=== PATIENT | male | born 1955 | race Caucasian/White ===

== ENCOUNTER 2021-03-22 11:19 | Outpatient (REF) | payer OTHER, SELFPAY ==
--- NOTE | ~2021-03-22 | XR_ITS ---
EXAMINATION: XR HIP, RIGHT CLINICAL INFORMATION: Pain. COMPARISON: None. TECHNIQUE: 2 views of the right hip. FINDINGS: No acute fracture or dislocation. Mild joint space narrowing with tiny marginal osteophytes. No osseous erosion. Surgical sutures within the pelvis. No abnormal soft tissue calcification. XR/XR hip RT min 2V IMPRESSION: Minimal right hip arthrosis.
== END 2021-03-22 11:20 | disposition home or self-care (01) ==
LOC: HO.XRAY 11:19
PROVIDERS: PCP Internal Medicine; Visit Provider Internal Medicine
DX: M25.551 Pain in right hip (principal)
CPT/HCPCS: 73502

== ENCOUNTER 2022-12-05 09:14 | Outpatient (AMB) | payer MEDICARE, OTHER, SELFPAY ==
--- NOTE | 2022-12-05 09:17 | MHC.PC.OV ---
Vital Signs 12/05/22 09:18 Height 5 ft 6 in Weight 152 lb BMI 24.5 BP 130/66 Blood Pressure Location Lt brachial Position Sitting Pulse 78 Pulse Source Pulse Oximeter Pulse Oximetry (%) 98 Oxygen Delivery Method Room Air Intake Visit Reasons: PE Intake Note: Patient is here today for a physical. Flight Test Data Acquisition Technician Required: No Ndt Inspector: Present Accompanied by: daughter marco Allergies No Known Allergies Allergy (Verified 12/05/22 09:17) Medication List - Last Reconciled 12/05/22 by Miguel Howell MD albuterol sulfate 90 mcg/actuation (ProAir HFA) 2 puffs inhalation Q6H PRN atorvastatin 20 mg PO DAILY cyclobenzaprine 10 mg PO TID docusate sodium 100 mg PO BID naproxen (Naprosyn) 500 mg PO BID PRN polyethylene glycol 3350 (Purelax) 17 grams PO DAILY sumatriptan succinate 25 mg PO ONCE Tobacco use date assessed: 12/05/22 Fall risk assessment: No Falls in past year Last assessed Fall Risk: 12/05/22 Dental Screening Dental Screen Date: 12/05/22 Did you have a dental visit in the last 12 months?: Yes Did you have a dental problem in the last 6 months where you did not have access to dental care?: No Was dental information given to patient?: No (no teeth) HPI PE HPI Details asthma and hyperlipidemia PFSH Medical History (Updated 12/05/22 @ 09:47 by Miguel Howell MD) Hyperlipidemia Surgical History Status post colon resection Family History Father Alzheimers disease Diabetes CVD (cardiovascular disease) Mental health disorder Mother Alzheimers disease Diabetes Mental health disorder Social History (Updated 12/05/22 @ 09:23 by LUAN Mcqueen) Housing: House Alcohol intake: never Patient Tobacco Use Status: Current everyday Tobacco user Tobacco use type: Cigarette Cigarettes Per Day: 20 e-Cigarette/Vaping Use: Never Used Second Hand Smoke Exposure: No service: No Current occupational status: employed Cognitive needs: No Hearing needs: No Vision needs: Yes (glasses) Questionnaire Thrive Questionnaire Date Thrive assessed: 05/26/22 MARIANA-7 AMB Questionnaire MARIANA-7 Date MARIANA - 7 assessed: 05/26/22 Source: Developed by Drs. Lisandro Herring, Kacie Bansal, Tyrell Daniel and colleagues, with an educational pipe from [employer]. Review of Systems Const Denies chills, Denies fatigue, Denies headache(s) and Denies weight loss Eyes Denies change in vision, Denies diplopia and Denies eye pain ENT Denies vertigo, Denies dizziness, Denies headache(s) and Denies nasal discharge Card Denies chest pain, Denies rapid heart rate and Denies dyspnea on exertion Resp Denies chest congestion, Denies cough, Denies pain with cough and Denies dyspnea on exertion GI Denies abdominal pain, Denies hematochezia and Denies change in bowel habits Musc Denies myalgias, Denies arthralgias and Denies joint swelling Skin/Breast Denies lesions and Denies unusual bruising Neuro Denies vertigo, Denies dizziness, Denies headache(s) and Denies focal weakness Endo Denies fatigue Physical exam (Primary Care) Vital Signs: Last Vital Signs Pulse 78 12/05/22 09:18 BP 130/66 12/05/22 09:18 Pulse Ox 98 12/05/22 09:18 Oxygen Delivery Method Room Air 12/05/22 09:18 BMI result Body Mass Index 24.5 Tobacco/Smoking Status: Tobacco use Status Tobacco use date assessed 12/05/22 12/05/22 09:25 Patient Tobacco Use Status Current everyday Tobacco 12/05/22 09:25 Tobacco use type Cigarette 12/05/22 09:25 e-Cigarette/Vaping Use Never Used 12/05/22 09:25 Are you ready to quit: No Number of minutes spent counselin CPT code: 09780 - 4-10 Minutes Thrive Assessment: Date of Thrive Assessment Date Thrive assessed 05/26/22 12/05/22 09:25 Const General: cooperative, healthy appearing and no acute distress Orientation/consciousness: oriented to person, oriented to place and oriented to time [facility] Head: Yes normal to inspection, Yes normocephalic and Yes atraumatic Mouth: Normal oral and palatal mucosa present and tongue normal Throat: Yes posterior oropharynx normal and Yes uvula midline Eyes General: appearance normal, both eyes and all related structures Neck Neck: Yes normal visual inspection, Yes full ROM and Yes no lymphadenopathy Thyroid: Thyroid normal Carotids: normal carotid upstroke Chest Chest palpation & inspection: normal inspection of the chest Resp Effort & Inspection: normal respiratory effort and able to speak in complete sentences Auscultation: clear to auscultation bilaterally Cardio Jugular venous distension: no JVD Palpation: normal PMI Rate: regular rate Rhythm: regular rhythm Heart sounds: S1 normal heart sound present and S2 normal heart sound present GI Inspection: Yes normal to inspection Palpation (GI): Soft to palpation and No hepatosplenomegaly present Auscultation: normal bowel sounds General: Yes no CVA tenderness Back/Spine/Pelvis Back: no CVA tenderness Skin General skin exam: no rashes or lesions noted Neuro General: oriented to person, oriented to place and oriented to time Extrem General: Yes normal to inspection and Yes full ROM Assessment and Plan Assessment & Plan (1) Physical exam: Code(s): Z00.00 - Encounter for general adult medical examination without abnormal findings Plan: do labs (2) Asthma: Code(s): J45.909 - Unspecified asthma, uncomplicated Plan: stop smoking (3) Hyperlipidemia: Code(s): E78.5 - Hyperlipidemia, unspecified Plan: do labs (4) Colon polyps: Code(s): K63.5 - Polyp of colon Plan: ref gi Orders: Orders Comprehensive [place]. Panel Fast Today N28.9 - Disorder of kidney and ureter, unspecified Lipid Panel Today E78.5 - Hyperlipidemia, unspecified Prostate Specific Antigen Scr Today Z00.00 - Encounter for general adult medical examination without abnormal findings Thyroid Stimulating Hormone Today E03.9 - Hypothyroidism, unspecified Complete Blood Count Auto Diff Today D64.9 - Anemia, unspecified Referrals Gastroenterology Referral K63.5 - Polyp of colon Medications: New nicotine 1 patch transdermal DAILY 28 ea 3RF Refilled cyclobenzaprine 10 mg PO TID 90 tabs 8RF Coding Level of Care Code New Pt Prev Care >65yr (93976) Diagnoses Physical exam Z00.00 Asthma J45.909 Hyperlipidemia E78.5 Colon polyps K63.5 Additional Codes Vital Signs *Quality* - CPT code: 22557 - 4-10 Minutes ([id number])
[2022-12-05 09:18] VITALS: BP 130/66; PULSE 78; O2SAT 98; BMI 24.5
== END 2022-12-05 09:44 | disposition home or self-care (01) ==
PROVIDERS: Visit Provider Internal Medicine
DX: Z00.00 Encounter for general adult medical examination without abnormal findings (principal); J45.909 Unspecified asthma, uncomplicated; E78.5 Hyperlipidemia, unspecified; K63.5 Polyp of colon
CPT/HCPCS: 99387

== ENCOUNTER 2023-08-16 08:26 | Day surgery (SDC) | payer MEDICARE, OTHER, SELFPAY ==
[2023-08-14 11:15] VITALS: BMI 24.7
[2023-08-16 09:37] VITALS: BMI 23.8
[2023-08-16 10:07] VITALS: BP 153/110; PULSE 92; RESP 16; TEMP 36.3
[2023-08-16 10:08] VITALS: BP 153/110; PULSE 92; RESP 16; TEMP 36.3; O2SAT 98
[2023-08-16] MEDS: Lactated Ringers 1,000 ML 80 ML IVCONT (10:11)
[2023-08-16 10:13] VITALS: BP 148/86
--- NOTE | 2023-08-16 10:21 | HO.ANESPROP2 ---
[facility] Active Problems Active Problems: All Active Problems (Updated 08/14/23 @ 11:13 by Jennie Feng RN) Colon polyps (Acute) Colitis (Acute) Migraine headache (Acute) Asthma (Acute) Hypertension (Acute) Physical exam (Acute) Hip pain (Acute) Hyperlipidemia (Acute) Past Medical History Medical History Rectal cancer Hyperlipidemia Family History Family History Father Alzheimers disease Diabetes CVD (cardiovascular disease) Mental health disorder Mother Alzheimers disease Diabetes Mental health disorder Family history of problems with anesthesia: No Surgical History Surgical History Hx of appendectomy Status post colon resection History of Problems with Anesthesia: No Social History Social History (Updated 12/05/22 @ 09:23 by LUAN Mcqueen) Housing: House Alcohol intake: never Patient Tobacco Use Status: Current everyday Tobacco user Tobacco use type: Cigarette Cigarettes Per Day: 10 e-Cigarette/Vaping Use: Never Used Second Hand Smoke Exposure: No Use of substances other than those prescribed or required for medical reasons: No Are you DNR?: No Advance Directives: No Advance Directives Information Provided: Yes service: No Current occupational status: employed Cognitive needs: No Hearing needs: No Vision needs: Yes (glasses) Meds Allergies Allergy/AdvReac Type Severity Reaction Status Date / Time No Known Allergies Allergy Verified 12/05/22 09:17 Active Medications: Current Medications Lactated Ringer's (Lr) 1,000 mls @ 80 mls/hr IVCONT .[id number] [facility] Last Admin: 08/16/23 10:11 Dose: 80 mls/hr Sodium Biphosphate/Sodium Phosphate (Sodium Phosphate,[place]-Dibasic 133 Ml Enema) 133 ml CA ONCE PRN PRN Reason: Poor Colonoscopy Prep Results Home Medications Medication Instructions Recorded Confirmed Last Taken Type atorvastatin 20 mg tablet 20 mg PO DAILY 05/08/20 12/05/22 Unknown History docusate sodium 100 mg capsule 100 mg PO BID 05/26/22 12/05/22 Unknown History polyethylene glycol 3350 17 gram 17 g PO DAILY 05/26/22 12/05/22 Unknown History oral powder packet (Purelax) cyclobenzaprine 10 mg tablet 10 mg PO TID PRN Muscle Spasm 08/14/23 08/14/23 Unknown History Exam Height,Weight and Vital Signs: Height 5 ft 7 in Weight 68.946 kg Last Vital Signs Temp 97.3 F 08/16/23 10:08 Pulse 92 08/16/23 10:08 Resp 16 08/16/23 10:08 BP 148/86 H 08/16/23 10:13 Pulse Ox 98 08/16/23 10:08 O2 Del Method Room Air 08/16/23 10:08 Airway Mallampati Class: II TM Dist: >3cm Loose/Missing/Broken Teeth: Yes (multiple missing) Heart: rrr Lungs: cta b/l Assessment and Plan Assessment Anesthesia Assessment: Anesthesia Plan Discussed, Smoking Cess. Discussed and Chart Reviewed Final Anesthetic Review Family History of Problems with Anesthesia: No History of Problems with Anesthesia: No NPO: Yes ASA Class: II Final Preanesthetic Review: No Changes in Pt Med Stat, Meds/Allgs Chart Reviewed, Consent Obtained/Reviewed and Anes Risks/Benef Reviewed Patient Risk: Intermediate Procedure Risk: Intermediate Anesthetic Plan Anesthetic Plan: MAC: Disposition: Standard PACU
[2023-08-16 12:25] VITALS: BP 157/98; PULSE 82; RESP 18; TEMP 36.2; O2SAT 99
--- NOTE | 2023-08-16 12:30 | PM.OP ---
Brief Operative Note Date of Service: 08/16/23 Pre-op diagnosis: Screening, Hx of rectal cancer Post-op diagnosis: other (Same, incomplete colonoscopy due to poor prep) Procedure: Colonoscopy to the descending colon Surgeon: Lisandro Giron MD Anesthesia: MAC Was an Coding Quality Analyst used for this Procedure?: No Estimated blood loss (mL): 0 Pathology: none sent Condition: stable Disposition: PACU
[2023-08-16 12:40] VITALS: BP 149/89; PULSE 79; RESP 16; O2SAT 98
[2023-08-16 12:54] VITALS: BP 148/86; PULSE 78; RESP 16; TEMP 36.2; O2SAT 98
--- NOTE | 2023-08-16 13:07 | OP_ITS ---
DATE OF SERVICE: 08/16/2023 SURGEON: Lisandro Giron MD INDICATIONS: The patient presents for evaluation of personal history of rectal cancer and need for colorectal cancer screening. Full consent obtained from him for this, including risks of bleeding and perforation. PREOPERATIVE DIAGNOSIS: POSTOPERATIVE DIAGNOSIS: PROCEDURE PERFORMED: Colonoscopy to the descending colon. ESTIMATED BLOOD LOSS: COMPLICATIONS: ANESTHESIA: Monitored anesthesia care. ASSISTANTS: SPECIMENS: PREOPERATIVE DIAGNOSES: Personal history of rectal cancer and colorectal cancer screening. POSTOPERATIVE DIAGNOSES: Personal history of rectal cancer and colorectal cancer screening, incomplete colonoscopy due to poor prep, colon polyp. DESCRIPTION OF PROCEDURE: The patient was placed in the left lateral decubitus position. The digital rectal exam revealed no abnormalities. The Olympus video pediatric colonoscope was entered into the rectum and advanced to the descending colon. However, I could not advance further due to retained solid and liquid stool both proximal and distal to this. At that point, I opted to stop trying to advance the scope as visualization was obviously inadequate. I did visualize a single, approximately 10 mm polyp in the sigmoid colon, but did not bother removing it today as he will need a repeat exam with a better preparation. I did visualize what appeared to be a very low anastomosis 2 to 3 cm above the dentate line. This appeared patent and without any sign of stricture, ulceration, nor mass. The scope was withdrawn from the patient. He tolerated the procedure well and was returned to recovery area in stable condition. IMPRESSION: 1. Incomplete colonoscopy due to poor prep. 2. Colon polyp. 3. Patent anastomosis. PLAN: The patient will be discharged today but will return for a repeat colonoscopy with a 2-day preparation. My office will be in touch with him in that regard. He has been given written instructions in this regard and I have spoken with his daughter, Danisha, about this as well. MD CJ Atkinson/REBEKA / [id number] MTDD
== END 2023-08-16 14:42 | disposition home or self-care (01) ==
PROVIDERS: Visit Provider Internal Medicine
PROC: 0DJD8ZZ Inspection of Lower Intestinal Tract, Via Natural or Artificial Opening Endoscopic (ICD-10-PCS; CPT 45378; principal; 2023-08-16 12:30)
DX: Z12.11 Encounter for screening for malignant neoplasm of colon (principal); K63.5 Polyp of colon; Z85.048 Personal history of other malignant neoplasm of rectum, rectosigmoid junction, and anus; Z92.21 Personal history of antineoplastic chemotherapy; Z92.3 Personal history of irradiation; Z98.0 Intestinal bypass and anastomosis status; F17.210 Nicotine dependence, cigarettes, uncomplicated; Z79.899 Other long term (current) drug therapy
CPT/HCPCS: 45330; J2704

== ENCOUNTER 2023-11-22 08:46 | Day surgery (SDC) | payer MEDICARE, SELFPAY ==
[2023-11-20 14:01] VITALS: BMI 24.7
[2023-11-22 08:53] VITALS: BMI 23.2
[2023-11-22 09:05] VITALS: BP 163/84; PULSE 76; RESP 18; TEMP 36.2; O2SAT 99
[2023-11-22] MEDS: Lactated Ringers 1,000 ML 100 ML IVCONT (09:15)
--- NOTE | 2023-11-22 09:28 | HO.ANESPROP2 ---
HPI - Anesthesia Eval Consult details Narrative: 68 yo M presenting for colonoscopy [facility] Active Problems Active Problems: All Active Problems Colon polyps (Acute) Colitis (Acute) Migraine headache (Acute) Asthma (Acute) Hypertension (Acute) Physical exam (Acute) Hip pain (Acute) Hyperlipidemia (Acute) Past Medical History Medical History Asthma Rectal cancer Hyperlipidemia Family History Family History Father Alzheimers disease Diabetes CVD (cardiovascular disease) Mental health disorder Mother Alzheimers disease Diabetes Mental health disorder Family history of problems with anesthesia: No Surgical History Surgical History H/O colonoscopy Hx of appendectomy Status post colon resection History of Problems with Anesthesia: No Social History Social History (Updated 12/05/22 @ 09:23 by LUAN Mcqueen) Housing: House Alcohol intake: never Patient Tobacco Use Status: Current everyday Tobacco user Tobacco use type: Cigarette Cigarettes Per Day: 20 e-Cigarette/Vaping Use: Never Used Second Hand Smoke Exposure: No Use of substances other than those prescribed or required for medical reasons: No Are you DNR?: No Advance Directives: No Advance Directives Information Provided: Yes service: No Current occupational status: employed Cognitive needs: No Hearing needs: No Vision needs: Yes (glasses) Meds Allergies Allergy/AdvReac Type Severity Reaction Status Date / Time No Known Allergies Allergy Verified 12/05/22 09:17 Active Medications: Current Medications Lactated Ringer's (Lr) 1,000 mls @ 100 mls/hr IVCONT .Q10H [facility] Last Admin: 11/22/23 09:15 Dose: 100 mls/hr Sodium Biphosphate/Sodium Phosphate (Sodium Phosphate,[place]-Dibasic 133 Ml Enema) 133 ml CO ONCE PRN PRN Reason: Poor Colonoscopy Prep Results Home Medications ?Medication ?Instructions ?Recorded ?Confirmed ?Last Taken ?Type polyethylene glycol 3350 17 gram 17 g PO DAILY 05/26/22 12/05/22 Unknown History oral powder packet (Purelax) cyclobenzaprine 10 mg tablet 10 mg PO TID PRN Muscle Spasm 08/14/23 08/14/23 Unknown History Exam Exam Date and Time: November 22, 2023924 Height,Weight and Vital Signs: Height 5 ft 7 in Weight 67.132 kg Last Vital Signs Temp 97.1 F 11/22/23 09:05 Pulse 76 11/22/23 09:05 Resp 18 11/22/23 09:05 BP 163/84 H 11/22/23 09:05 Pulse Ox 99 11/22/23 09:05 O2 Del Method Room Air 11/22/23 09:05 Airway Mallampati Class: I TM Dist: >3cm Neck ROM: Full Loose/Missing/Broken Teeth: Yes (edentulous) Heart: S1S2 Lungs: CTAB Assessment and Plan Assessment Anesthesia Assessment: Anesthesia Plan Discussed and Chart Reviewed Final Anesthetic Review Family History of Problems with Anesthesia: No History of Problems with Anesthesia: No NPO: Yes ASA Class: II Final Preanesthetic Review: No Changes in Pt Med Stat, Meds/Allgs Chart Reviewed, Consent Obtained/Reviewed and Anes Risks/Benef Reviewed Patient Risk: Low Procedure Risk: Low Anesthetic Plan Anesthetic Plan: MAC: and Agree w/ Assess. and Plan Disposition: Standard PACU
[2023-11-22 10:47] VITALS: BP 131/79; PULSE 68; RESP 18; TEMP 36.6; O2SAT 98
--- NOTE | 2023-11-22 10:50 | PM.OP ---
Brief Operative Note Date of Service: 11/22/23 Pre-op diagnosis: Screening Post-op diagnosis: other (Colon polyps) Procedure: Colonoscopy to the cecum with bx/removal of polyp, cold snare polypectomy, and hot snare polypectomy Surgeon: Lisandro Giron MD Anesthesia: MAC Was an Estate Planning Paralegal used for this Procedure?: No Estimated blood loss (mL): 2.0 Pathology: other (A. Polyp at 50cm B. Ascending colon polyp C. Polyp at 40cm D. Polyp at 20cm E. Distal rectal polyp) Condition: stable Disposition: PACU
[2023-11-22 10:52] VITALS: BP 132/80; PULSE 65; RESP 18; O2SAT 98
[2023-11-22 10:57] VITALS: BP 143/79; PULSE 62; RESP 18; O2SAT 98
[2023-11-22 11:02] VITALS: BP 148/81; PULSE 62; RESP 18; TEMP 36.8; O2SAT 98
[2023-11-22 11:12] VITALS: BP 129/75; PULSE 62; RESP 18; TEMP 36.4; O2SAT 98
--- NOTE | 2023-11-22 11:33 | OP_ITS ---
DATE OF SERVICE: 11/22/2023 SURGEON: Lisandro Giron MD INDICATIONS: The patient presents for evaluation of personal history of rectal cancer and colorectal cancer screening. Full consent has been obtained from him for this, including risks of bleeding and perforation. PREOPERATIVE DIAGNOSIS: POSTOPERATIVE DIAGNOSIS: PROCEDURE PERFORMED: Colonoscopy to the cecum with hot snare polypectomy, cold snare polypectomy, and biopsy removal of polyp. ESTIMATED BLOOD LOSS: COMPLICATIONS: ANESTHESIA: Monitored anesthesia care. ASSISTANTS: SPECIMENS: PREOPERATIVE DIAGNOSES: Colorectal cancer screening and personal history of rectal cancer. POSTOPERATIVE DIAGNOSES: Colorectal cancer screening, personal history of rectal cancer, colon polyps, diverticulosis, and internal hemorrhoids. DESCRIPTION OF PROCEDURE: The patient was placed in the left lateral decubitus position. The digital rectal exam revealed no abnormalities. The Olympus video pediatric colonoscope was then entered into the rectum and advanced easily to the cecum. Once in the cecum, I did identify normal-appearing cecal pouch with appendiceal orifice and a normal-appearing ileocecal valve. The entire cecum and ileocecal valve appeared normal. There was transillumination of light deep in the right lower quadrant. The scope was then slowly withdrawn assessing all mucosal surfaces carefully. Preparation was excellent after his 2-day prep. In the ascending colon, was an approximately 3 or 4 mm polyp, which was removed with a cold biopsy forceps completely. At 50 cm, was an approximately 5 mm polyp, which was removed by cold snare polypectomy and recovered by suction. The polypectomy site appeared clean, without any sign of residual polyp nor any significant bleeding. At 40 cm, was an approximately 5 mm polyp, which was removed by cold snare polypectomy and recovered by suction. The polypectomy site appeared clean, without any sign of residual polyp nor significant bleeding. At 20 cm, was an approximately 10 mm polyp, which was removed by a hot snare polypectomy and recovered by suction. The polypectomy site appeared clean, without any sign of residual polyp nor bleeding. In the distal rectum, beneath the anastomosis, was an approximately 8 mm flat, but raised polyp, which was removed by hot snare polypectomy and recovered by suction. The polypectomy site appeared clean, without any sign of residual polyp nor bleeding. I did not visualize any other polyps, colitis, or angiodysplasias. There was a mild amount of sigmoid diverticulosis. The anastomosis appeared normal in the distal most rectum. I was unable to retroflex due to the previous surgery and radiation treatments. I did visualize some internal hemorrhoids. The scope was withdrawn from the patient. He tolerated the procedure well and was returned to the recovery area in stable condition. IMPRESSION: 1. Colon polyps. 2. Diverticulosis. 3. Normal anastomosis. 4. Internal hemorrhoids. PLAN: The results of the pathology will be checked. I would recommend a repeat colonoscopy in 3 years for further screening and surveillance. He will, otherwise, see me on a p.r.n. basis. He was advised not to use any aspirin and NSAIDs for 1 week. MD CJ Atkinson/REBEKA / [id number]
== END 2023-11-22 11:30 | disposition home or self-care (01) ==
PROVIDERS: PCP Internal Medicine; Visit Provider Internal Medicine
PROC: 0DJD8ZZ Inspection of Lower Intestinal Tract, Via Natural or Artificial Opening Endoscopic (ICD-10-PCS; CPT 45378; principal; 2023-11-22 09:30)
DX: Z12.11 Encounter for screening for malignant neoplasm of colon (principal); Z85.048 Personal history of other malignant neoplasm of rectum, rectosigmoid junction, and anus; D12.5 Benign neoplasm of sigmoid colon; D12.2 Benign neoplasm of ascending colon; D12.8 Benign neoplasm of rectum; K57.30 Diverticulosis of large intestine without perforation or abscess without bleeding; K64.8 Other hemorrhoids; G62.9 Polyneuropathy, unspecified; Z98.0 Intestinal bypass and anastomosis status; Z92.21 Personal history of antineoplastic chemotherapy; Z92.3 Personal history of irradiation; Z79.899 Other long term (current) drug therapy; F17.210 Nicotine dependence, cigarettes, uncomplicated
CPT/HCPCS: 45385; 45380; 88305; J2704

== ENCOUNTER 2023-12-13 09:50 | Outpatient (AMB) | payer MEDICARE, SELFPAY ==
[2023-12-13 09:56] VITALS: BP 130/74; RESP 65; O2SAT 98; BMI 23.3
--- NOTE | 2023-12-13 09:56 | A.OFFPC_ITS ---
Vital Signs 12/13/23 09:56 Height 5 ft 7 in Weight 149 lb BMI 23.3 BP 130/74 Blood Pressure Location Lt brachial Position Sitting Respiration 65 H Pulse Source Pulse Oximeter Pulse Oximetry (%) 98 Oxygen Delivery Method Room Air Intake Visit Reasons: Annual Exam Supervisor [employer] Required: No Food And Nutrition Services Supervisor: Not Required per policy Accompanied by: Self / Same As Patient Allergies No Known Allergies Allergy (Verified 12/13/23 09:56) Medication List - Last Reconciled 12/13/23 by Miguel Howell MD cyclobenzaprine 10 mg PO TID PRN polyethylene glycol 3350 (Purelax) 17 grams PO DAILY Tobacco use date assessed: 12/13/23 Fall risk assessment: No Falls in past year Last assessed Fall Risk: 12/13/23 Dental Screening Dental Screen Date: 12/13/23 Did you have a dental visit in the last 12 months?: No Did you have a dental problem in the last 6 months where you did not have access to dental care?: No Was dental information given to patient?: Patient has dentist HPI Annual Exam HPI Details healthy [facility] Medical History (Updated 12/13/23 @ 10:48 by Miguel Howell MD) Hypertension Asthma Rectal cancer Hyperlipidemia Surgical History H/O colonoscopy Hx of appendectomy Status post colon resection Family History Father Alzheimers disease Diabetes CVD (cardiovascular disease) Mental health disorder Mother Alzheimers disease Diabetes Mental health disorder Social History (Updated 12/05/22 @ 09:23 by LUAN Mcqueen) Housing: House Alcohol intake: never Patient Tobacco Use Status: Current everyday Tobacco user Tobacco use type: Cigarette Cigarettes Per Day: 20 e-Cigarette/Vaping Use: Never Used Second Hand Smoke Exposure: No service: No Current occupational status: employed Cognitive needs: No Hearing needs: No Vision needs: Yes (glasses) Questionnaire PHQ-9 Over the last 2 weeks, how often have you been bothered by any of the following problems? 1. Little interest or pleasure in doing things: not at all 2. Feeling down, depressed, or hopeless: not at all 3. Trouble falling or staying asleep, or sleeping too much: not at all 4. Feeling tired or having little energy: not at all 5. Poor appetite or overeating: not at all 6. Feeling bad about yourself - or that you are a failure or have let yourself or your family down: not at all 7. Trouble concentrating on things, such as reading the newspaper or watching television: not at all 8. Moving or speaking so slowly that other people could have noticed. Or the opposite - being so fidgety or restless that you have been moving around a lot more than usual: not at all 9. Thoughts that you would be better off or of hurting yourself in some way: not at all Total score: 0 Depression Screening Interpretation: Negative Depression Screening Done: Yes 69866 - PHQ-9 Billing: Yes Source: Developed by Drs. Lisandro Herring, Kacie Bansal, Tyrell Daniel and colleagues, with an educational pipe from [employer]. Thrive Questionnaire Date Thrive assessed: 12/13/23 I am a: Patient What is your living situation today?: I have a steady place to live Within the past 12 months, did the food you bought not last and you didn't have the money to get more?: Never true Within the past 12 months, did you worry whether your food would run out before you got money to buy more?: Never true Do you have trouble paying for medicines?: No Do you have trouble getting transportation to medical appointments?: No Do you have trouble paying your heating and electricity bill?: No Do you have trouble taking care of your child, family member or friend?: No Do you have trouble with day-to-day activities such as bathing, preparing meals, shopping, managing finances, etc.?: No Are you currently unemployed and looking for a job?: No Are you interested in more education?: No Please select the resources that you would like help with: None Currently or been in a relationship where the following occur: No concerns reported THRIVE Score: 0 AUDIT C Alcohol Use Questionnaire (AUDIT-C) 1. How often do you have a drink containing alcohol?: Never Total Score: 0 Score Reviewed/Action Taken: Yes MARIANA-7 AMB Questionnaire MARIANA-7 Date MARIANA - 7 assessed: 12/13/23 Feeling nervous, anxious, or on edge: 0 = Not at all Not being able to stop or control worryin = Not at all Worrying too much about different things: 0 = Not at all Trouble relaxin = Not at all Being so restless that it is hard to sit still: 0 = Not at all Becoming easily annoyed or irritable: 0 = Not at all Feeling afraid as if something awful might happen: 0 = Not at all Total MARIANA-7 score (0-4 normal; 5-9 mild; 10-14 moderate; 15-21 severe): 0 Source: Developed by Drs. Lisandro Herring, Kacie Bansal, Tyrell Daniel and colleagues, with an educational pipe from [employer]. MARIANA-7 Assessment Billing MARIANA-7 Assessment Tool: MARIANA-7 Assessment 26368 Review of Systems Const Denies chills, Denies fatigue, Denies headache(s) and Denies weight loss Eyes Denies change in vision, Denies diplopia and Denies eye pain ENT Denies vertigo, Denies dizziness, Denies headache(s) and Denies nasal discharge Card Denies chest pain, Denies rapid heart rate and Denies dyspnea on exertion Resp Denies chest congestion, Denies cough, Denies pain with cough and Denies dyspnea on exertion GI Denies abdominal pain, Denies hematochezia and Denies change in bowel habits Musc Denies myalgias, Denies arthralgias and Denies joint swelling Skin/Breast Denies lesions and Denies unusual bruising Neuro Denies vertigo, Denies dizziness, Denies headache(s) and Denies focal weakness Endo Denies fatigue Physical exam (Primary Care) Vital Signs: Last Vital Signs Resp 65 H 12/13/23 09:56 BP 130/74 12/13/23 09:56 Pulse Ox 98 12/13/23 09:56 Oxygen Delivery Method Room Air 12/13/23 09:56 BMI result Body Mass Index 23.3 Tobacco/Smoking Status: Tobacco use Status Tobacco use date assessed 12/13/23 12/13/23 09:57 Patient Tobacco Use Status Current everyday Tobacco 12/13/23 09:57 Tobacco use type Cigarette 12/13/23 09:57 e-Cigarette/Vaping Use Never Used 12/13/23 09:57 PHQ-9: PHQ-9 Score PHQ-9: Total score 0 12/13/23 09:57 Depression Screening Interpretation: Negative Thrive Assessment: Date of Thrive Assessment Date Thrive assessed 12/13/23 12/13/23 09:57 Currently or been in a relationship where the following occur: No concerns reported Const General: cooperative, healthy appearing and no acute distress Orientation/consciousness: oriented to person, oriented to place and oriented to time HENMT Head: Yes normal to inspection, Yes normocephalic and Yes atraumatic Mouth: Normal oral and palatal mucosa present and tongue normal Throat: Yes posterior oropharynx normal and Yes uvula midline Eyes General: appearance normal, both eyes and all related structures Neck Neck: Yes normal visual inspection, Yes full ROM and Yes no lymphadenopathy Thyroid: Thyroid normal Carotids: normal carotid upstroke Chest Chest palpation & inspection: normal inspection of the chest Resp Effort & Inspection: normal respiratory effort and able to speak in complete sentences Auscultation: clear to auscultation bilaterally Cardio Jugular venous distension: no JVD Palpation: normal PMI Rate: regular rate Rhythm: regular rhythm Heart sounds: S1 normal heart sound present and S2 normal heart sound present GI Inspection: Yes normal to inspection Palpation (GI): Soft to palpation and No hepatosplenomegaly present Auscultation: normal bowel sounds General: Yes no CVA tenderness Back/Spine/Pelvis Back: no CVA tenderness Skin General skin exam: no rashes or lesions noted Neuro General: oriented to person, oriented to place and oriented to time Extrem General: Yes normal to inspection and Yes full ROM Assessment and Plan Assessment & Plan (1) Physical exam: Code(s): Z00.00 - Encounter for general adult medical examination without abnormal findings Plan: do labs; stable Orders: Orders Thyroid Stimulating Hormone Today Z13.29 - Encounter for screening for other suspected endocrine disorder Lipid Panel Today Z13.220 - Encounter for screening for lipoid disorders Complete Blood Count Auto Diff Today Z13.0 - Encounter for screening for diseases of the blood and blood-forming organs and certain disorders involving the immune mechanism Comprehensive [place]. Panel Fast Today Z13.9 - Encounter for screening, unspecified Coding Level of Care Code Est Pt Prev Care >65y(91036) Diagnoses Physical exam Z00.00 Additional Codes MARIANA-7 Assessment Billing - MARIANA-7 Assessment Tool: MARIANA-7 Assessment 25594 ([id number])
== END 2023-12-13 10:18 | disposition home or self-care (01) ==
PROVIDERS: PCP Internal Medicine; Visit Provider Internal Medicine
DX: Z00.00 Encounter for general adult medical examination without abnormal findings (principal)
CPT/HCPCS: 99397

== ENCOUNTER 2024-05-30 14:31 | Outpatient (AMB) | payer MEDICARE, SELFPAY ==
--- NOTE | 2024-05-30 14:41 | A.OFFPC_ITS ---
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 Required: No Accompanied by: Self / Same As Patient Allergies No Known Allergies Allergy (Verified 05/30/24 14:45) Tobacco use date assessed: 05/30/24 Fall risk assessment: No Falls in past year Last assessed Fall Risk: 05/30/24 Dental Screening Dental Screen Date: 05/30/24 Did you have a dental visit in the last 12 months?: No Did you have a dental problem in the last 6 months where you did not have access to dental care?: No Was dental information given to patient?: Patient has dentist HPI dizziness from sitting to standing position HPI Details occasional postural light headedness for a few weeks; no palpitations chest pain or bleeding PFSH Medical History (Updated 12/13/23 @ 10:48 by Miguel Howell MD) Hypertension Asthma Rectal cancer Hyperlipidemia Surgical History H/O colonoscopy Hx of appendectomy Status post colon resection Family History Father Alzheimers disease Diabetes CVD (cardiovascular disease) Mental health disorder Mother Alzheimers disease Diabetes Mental health disorder Social History Housing: House Alcohol intake: never Patient Tobacco Use Status: Current everyday Tobacco user Tobacco use type: Cigarette Cigarettes Per Day: 20 e-Cigarette/Vaping Use: Never Used Second Hand Smoke Exposure: No service: No Current occupational status: employed Cognitive needs: No Hearing needs: No Vision needs: Yes (glasses) Questionnaire PHQ-9 Over the last 2 weeks, how often have you been bothered by any of the following problems? 1. Little interest or pleasure in doing things: not at all 2. Feeling down, depressed, or hopeless: not at all 3. Trouble falling or staying asleep, or sleeping too much: not at all 4. Feeling tired or having little energy: not at all 5. Poor appetite or overeating: not at all 6. Feeling bad about yourself - or that you are a failure or have let yourself or your family down: not at all 7. Trouble concentrating on things, such as reading the newspaper or watching television: not at all 8. Moving or speaking so slowly that other people could have noticed. Or the opposite - being so fidgety or restless that you have been moving around a lot more than usual: not at all 9. Thoughts that you would be better off or of hurting yourself in some way: not at all Total score: 0 Depression Screening Interpretation: Negative Depression Screening Done: Yes 42041 - PHQ-9 Billing: Yes Source: Developed by Drs. Lisandro Herring, Kacie Bansal, Tyrell Daniel and colleagues, with an educational pipe from [employer]. Thrive Questionnaire Date Thrive assessed: 05/30/24 I am a: Patient What is your living situation today?: I have a steady place to live Within the past 12 months, did the food you bought not last and you didn't have the money to get more?: Never true Within the past 12 months, did you worry whether your food would run out before you got money to buy more?: Never true Do you have trouble paying for medicines?: No Do you have trouble getting transportation to medical appointments?: No Do you have trouble paying your heating and electricity bill?: No Do you have trouble taking care of your child, family member or friend?: No Do you have trouble with day-to-day activities such as bathing, preparing meals, shopping, managing finances, etc.?: No Are you currently unemployed and looking for a job?: No Are you interested in more education?: No Please select the resources that you would like help with: None Currently or been in a relationship where the following occur: No concerns reported THRIVE Score: 0 AUDIT C Alcohol Use Questionnaire (AUDIT-C) 1. How often do you have a drink containing alcohol?: Never Total Score: 0 Score Reviewed/Action Taken: Yes MARIANA-7 AMB Questionnaire MARIANA-7 Date MARIANA - 7 assessed: 05/30/24 Feeling nervous, anxious, or on edge: 0 = Not at all Not being able to stop or control worryin = Not at all Worrying too much about different things: 0 = Not at all Trouble relaxin = Not at all Being so restless that it is hard to sit still: 0 = Not at all Becoming easily annoyed or irritable: 0 = Not at all Feeling afraid as if something awful might happen: 0 = Not at all Total MARIANA-7 score (0-4 normal; 5-9 mild; 10-14 moderate; 15-21 severe): 0 Source: Developed by Drs. Lisandro Herring, Kacie Bansal, Tyrell Daniel and colleagues, with an educational pipe from [employer]. MARIANA-7 Assessment Billing MARIANA-7 Assessment Tool: MARIANA-7 Assessment 97383 Review of Systems Const Denies chills, Denies headache(s) and Denies weight loss ENT Denies headache(s) Card Denies chest pain, Denies syncope, Denies irregular heart rhythm and Denies dyspnea Resp Denies chest congestion, Denies cough and Denies dyspnea GI Denies abdominal pain, Denies change in stool character, Denies nausea and Denies vomiting Musc Denies deformity and Denies joint swelling Neuro Denies syncope and Denies headache(s) Physical exam (Primary Care) Vital Signs: Last Vital Signs Pulse 89 05/30/24 14:42 BP 144/80 H 05/30/24 14:42 Pulse Ox 96 05/30/24 14:42 Oxygen Delivery Method Room Air 05/30/24 14:42 BMI result Body Mass Index 20.5 Tobacco/Smoking Status: Tobacco use Status Tobacco use date assessed 05/30/24 05/30/24 14:46 Patient Tobacco Use Status Current everyday Tobacco 05/30/24 14:46 Tobacco use type Cigarette 05/30/24 14:46 e-Cigarette/Vaping Use Never Used 05/30/24 14:46 PHQ-9: PHQ-9 Score PHQ-9: Total score 0 05/30/24 14:46 Depression Screening Interpretation: Negative Thrive Assessment: Date of Thrive Assessment Date Thrive assessed 05/30/24 05/30/24 14:46 Currently or been in a relationship where the following occur: No concerns reported Const General: cooperative, comfortable, no acute distress and alert Neck Neck: Yes no lymphadenopathy Thyroid: Thyroid normal Resp Effort & Inspection: normal respiratory effort Auscultation: clear to auscultation bilaterally Percussion: percussion normal Cardio Jugular venous distension: no JVD Palpation: normal PMI Rate: regular rate Rhythm: regular rhythm Heart sounds: S1 normal heart sound present and S2 normal heart sound present GI Inspection: Yes normal to inspection Palpation (GI): No hepatosplenomegaly present Skin General skin exam: no rashes or lesions noted Extrem General: Yes no clubbing, cyanosis or edema Coding Level of Care Code Est Pt Level 3 (09413) Diagnoses Dizziness R42 Additional Codes MARIANA-7 Assessment Billing - MARIANA-7 Assessment Tool: MARIANA-7 Assessment 64885 ([id number]) PHQ-9 - 08190 - PHQ-9 Billing: Yes ([id number]) Assessment & Plan Assessment & Plan (1) Dizziness: Code(s): R42 - Dizziness and giddiness Plan: labs and ekg Orders: Orders Lipid Panel 05/30/24 Z13.220 - Encounter for screening for lipoid disorders Prostate Specific Antigen Scr 05/30/24 Z00.00 - Encounter for general adult medical examination without abnormal findings ECG 12 lead EKG 05/30/24 R42 - Dizziness and giddiness Thyroid Stimulating Hormone 05/30/24 Z13.29 - Encounter for screening for other suspected endocrine disorder Complete Blood Count Auto Diff 05/30/24 Z13.0 - Encounter for screening for diseases of the blood and blood-forming organs and certain disorders involving the immune mechanism Comprehensive [place]. Panel Fast 05/30/24 Z13.9 - Encounter for screening, unspecified
[2024-05-30 14:42] VITALS: BP 144/80; PULSE 89; O2SAT 96; BMI 20.5
== END 2024-05-30 14:50 | disposition home or self-care (01) ==
PROVIDERS: PCP Internal Medicine; Visit Provider Internal Medicine
DX: R42 Dizziness and giddiness (principal)

== ENCOUNTER → 2024-05-30 14:31 | Outpatient (BNVA) | payer MEDICARE, SELFPAY | PROVIDERS: PCP Internal Medicine; Visit Provider Internal Medicine | DX: Z00.00 Encounter for general adult medical examination without abnormal findings (principal); R42 Dizziness and giddiness; F17.210 Nicotine dependence, cigarettes, uncomplicated | CPT/HCPCS: 96127; 99212 ==

== ENCOUNTER 2024-07-25 13:51 | Outpatient (AMB) | payer MEDICARE, SELFPAY ==
[2024-07-25 13:54] VITALS: BP 132/70; PULSE 86; RESP 18; TEMP 36.3; O2SAT 98; BMI 20.4
--- NOTE | 2024-07-25 13:54 | MHC.PC.OV ---
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: No Accompanied by: Self / Same As Patient Allergies No Known Allergies Allergy (Verified 07/25/24 13:57) Tobacco use date assessed: 07/25/24 Fall risk assessment: 1 Fall in past year Last assessed Fall Risk: 07/25/24 Dental Screening Dental Screen Date: 05/30/24 HPI Fall f/u HPI Details fell on coccyx 2 days ago; improved and ready to return to work PFSH Medical History (Updated 12/13/23 @ 10:48 by Miguel Howell MD) Hypertension Asthma Rectal cancer Hyperlipidemia Surgical History H/O colonoscopy Hx of appendectomy Status post colon resection Family History Father Alzheimers disease Diabetes CVD (cardiovascular disease) Mental health disorder Mother Alzheimers disease Diabetes Mental health disorder Social History Housing: House Alcohol intake: never Patient Tobacco Use Status: Current everyday Tobacco user Tobacco use type: Cigarette Cigarettes Per Day: 20 e-Cigarette/Vaping Use: Never Used Second Hand Smoke Exposure: No service: No Current occupational status: employed Cognitive needs: No Hearing needs: No Vision needs: Yes (glasses) Questionnaire Thrive Questionnaire Date Thrive assessed: 05/30/24 AUDIT C Alcohol Use Questionnaire (AUDIT-C) 2. How many drinks containing alcohol do you have on a typical day when you are drinking?: 1 or 2 3. How often do you have six or more drinks on one occasion?: Never Total Score: 0 MARIANA-7 AMB Questionnaire MARIANA-7 Date MARIANA - 7 assessed: 05/30/24 Source: Developed by Drs. Lisandro Herring, Kacie Bansal, Tyrell Daniel and colleagues, with an educational pipe from [employer]. Review of Systems Const Denies chills, Denies headache(s) and Denies weight loss ENT Denies headache(s) Card Denies chest pain, Denies syncope, Denies irregular heart rhythm and Denies dyspnea Resp Denies chest congestion, Denies cough and Denies dyspnea GI Denies abdominal pain, Denies change in stool character, Denies nausea and Denies vomiting Musc Denies deformity and Denies joint swelling Neuro Denies syncope and Denies headache(s) Physical exam (Primary Care) Vital Signs: Last Vital Signs Temp 97.3 F 07/25/24 13:54 Pulse 86 07/25/24 13:54 Resp 18 07/25/24 13:54 BP 132/70 07/25/24 13:54 Pulse Ox 98 07/25/24 13:54 Oxygen Delivery Method Room Air 07/25/24 13:54 BMI result Body Mass Index 20.4 Tobacco/Smoking Status: Tobacco use Status Tobacco use date assessed 07/25/24 07/25/24 14:00 Patient Tobacco Use Status Current everyday Tobacco 07/25/24 14:00 Tobacco use type Cigarette 07/25/24 14:00 e-Cigarette/Vaping Use Never Used 07/25/24 14:00 Thrive Assessment: Date of Thrive Assessment Date Thrive assessed 05/30/24 07/25/24 14:00 Const General: cooperative, comfortable, no acute distress and alert Neck Neck: Yes no lymphadenopathy Thyroid: Thyroid normal Resp Effort & Inspection: normal respiratory effort Auscultation: clear to auscultation bilaterally Percussion: percussion normal Cardio Jugular venous distension: no JVD Palpation: normal PMI Rate: regular rate Rhythm: regular rhythm Heart sounds: S1 normal heart sound present and S2 normal heart sound present GI Inspection: Yes normal to inspection Palpation (GI): No hepatosplenomegaly present Skin General skin exam: no rashes or lesions noted Extrem General: Yes no clubbing, cyanosis or edema Coding Level of Care Code Est Pt Level 3 (03892) Diagnoses Coccyalgia M53.3 Assessment & Plan Assessment & Plan (1) Coccyalgia: Code(s): M53.3 - Sacrococcygeal disorders, not elsewhere classified Plan: september rtw
--- OUTSIDE RECORDS SUMMARY | 2024-07-25 16:54 | XMS_ITS | Patient Health Record ---
Author Organization [facility] Address [address] [place] [address] Care Team Providers Care Hay Buckler Name Role Phone Miguel Howell MD Primary Care Provider Lisandro Corrales Unavailable [phone] Allergies No Known Allergies Results Component Value Reference Range Notes Pathology (Not yet reviewed by provider) Interpretation: Performing Lab:[facility], [address] [place] [id number] Notes/Report: Name: He Gee Age/Sex: 68/M : 1955 Unit#: [id number] Attend Dr: Lisandro Giron MD Re11/22/23 Status : [facility] Location: [place]IL Disch: SPEC : [id number] RECD : 11/22/23 STATUS: [place] NUM: [id number] TEJAS: 11/22/[address] [facility] [address]: Lisandro Giron MD ENTERED: 11/22/23 39 SP TYPE: Surgical OTHR DR: Miguel Howell MD ORDERED: HE Stain/15 , Gross Micro L4/5 Diagnosis A. Colon, 50 cm, riddhi ypectomy: Tubular adenoma; negative for high-grade dysplasia or carcinoma. B. Colon, ascending, polypectomy: Sessile serrated lesion/polyp; negative for cytologic dysplasia. C. Colon, 40 cm, riddhi ypectomy: Hyperplastic mucosal polyp. D. Colon, 20 cm, riddhi ypectomy: Tubular adenoma; negative for high-grade dysplasia or carcinoma. E. Rectum, distal, p olypectomy: Tubular adenoma; negative for high-grade dysplasia or carcinoma. Clinical History Pre-Op Dx: H/O recta l cancer, screening Post-Op Dx: Colon polyps Microscopic Description A-E. Microscopic sec tions reviewed. Material Received A. Polyp at 50 cm B. Ascending colon polyp C. Polyp at 40 cm D. Polyp at 20 cm E. Distal rectal polyp Gross Description Received in five parts. Part A: Received in formalin labeled ?polyp at 50 cm? is a 0.35 cm tate-pink papular tissue fragment, submitted toto in a cassette labeled A. Part B: Received in formalin labeled ?ascending colon polyp? is a 0.25 cm tate-pink papular tissue fragment, sub mitted in toto in a cassette labeled B. Part C: Received in formalin labeled ?polyp at 40 cm? is a 0.25 cm tate-pink papular tissue CONTINUED ON NEXT PAGE Name: Jorge LuisHe Green Age/Sex: 68/M : 1955 Unit#: [id number] Attend Dr: Lisandro Giron MD Re11/22/23 Status : [facility] Location: HO.FAIZAN Disch: SPEC : [id number] RECD : 11/22/23 STATUS: [place] NUM: [id number] TEJAS: 11/22/[address] [facility] [address]: Lisandro Giron MD ENTERED: 11/22/23 39 SP TYPE: Surgical OTHR DR: Miguel Howell MD ORDERED: HE Stain/15 , Gross Micro L4/5 Gross Description (Continued) fragment, submitted in toto in a cassette labeled C. Part D: Received in formalin labeled ?polyp at 20 cm? is a 0.9 cm in greatest dimension hyperemic, velvety, tate-pink papular tissue fragment. The resected base is inked and the specimen is sectione d and entirely submitted in a cassette labeled D. Part E: Received in formalin labeled ?distal rectal polyp? is a 0.45 cm tate papular tissue fragment, submitted in toto in a cassette labeled E. CEDS Copies To: Miguel Howell MD [address] [place], [place] [id number] Lisandro Giron MD [facility] [address] [place], [place] [phone] Signed (si gnature on file) Shaun Bee MD 11/24/23 1546 END OF REPORT Reason For Referral No Information Medications Medication SIG (Take, Route, Frequency, Duration) Notes Start Date End Date Status Zomig 5 MG 1 tablet Orally Once a day for 1 day(s) PRN Headache Active Cyclobenzaprine HCl 10 MG TAKE 1 TABLET ORALLY 3 TIMES A DAY Oral for 30 PRN Neuropathy pain Active Social History Tobacco Use: Social History Observation Description Date Details (start date - stop date) Current Smoker NA - NA Tobacco Use/Smoking Question Answer Notes Patient is a current smoker How often do you smoke cigarettes? every day How many cigarettes a day do you smoke? 11-20 Alcohol Screen Question Answer Notes Did you have a drink containing alcohol in the p ast year? Yes How often did you have a dri nk containing alcohol in the past year? Never (0 point) Points 0 Interpretation Negative Section Notes: Smokes 1 1/2 PPD; no sig alc ohol Problems Problem Type SNOMED Code ICD Code Onset Dates Problem Status W/U Status Risk Notes Problem 542716992 Colon cancer screening (Z12.11) Active confirmed Problem Diverticular disease of colon (083307702) Diverticulosis of large intestine without perforation or abscess without bleeding (K57.30) Active confirmed Problem History of lower gastrointestinal tract neoplasm (387839671) Personal history of other malignant neoplasm of rectum, rectosigmoid junction, and anus (Z85.048) Active confirmed Problem History of gastrointestinal tract bypass (598590657) Intestinal bypass and anastomosis status (Z98.0) Active confirmed Problem 303422433197320 Preprocedural examination (Z01.818) Active confirmed Problem 475309526 History of recta l cancer (Z85.048) Active confirmed Encounters Encounter Location Date Provider Diagnosis [facility] [address] [place] [id number] 08/16/2023 Lisandro Giron Encounter for screen ing colonoscopy Z12.11 ; Colon polyps K63.5 ; Personal history of other malignant neoplasm of rectum, rectosigmoid junction, and anus Z85.048 and Intestinal bypass and anastomosis status Z98.0 [facility] [address], [place] [phone] 11/22/2023 Lisandro Giron Colon cancer screeni ng Z12.11 ; Colon polyps K63.5 ; Personal history of other malignant neoplasm of rectum, rectosigmoid junction, and anus Z85.048 ; Diverticulosis of large intestine without perforation or abscess without bleeding K57.30 and Other hemorrhoids K64.8 [facility] [address] [place] [address] 08/20/2023 Lisandro Giron Assessments Encounter Date Diagnosis (ICD Code) Assessment Notes Treatment Notes Treatment Clinical Notes Section Notes 08/16/2023 Encounter for screening colonoscopy (ICD-10 - Z12.11) 08/16/2023 Colon polyps (ICD-10 - K63.5) 11/22/2023 Colon cancer screening (ICD-10 - Z12.11) 11/22/2023 Colon polyps (ICD-10 - K63.5) 08/16/2023 Personal history of other malignant neoplasm of rectum, rectosigmoid junction, and anus (ICD-10 - Z85.048) 11/22/2023 Personal history of other malignant neoplasm of rectum, rectosigmoid junction, and anus (ICD-10 - Z85.048) 08/16/2023 Intestinal bypass and anastomosis status (ICD-10 - Z98.0) 11/22/2023 Diverticulosis of large intestine without perforation or abscess without bleeding (ICD-10 - K57.30) 11/22/2023 Other hemorrhoids (ICD-10 - K64.8) Plan Of Treatment Pending Test Test Name Order Date Pathology 11/22/2023 Future Test Test Name Order Date COLONOSCOPY 05/30/2023 Insurance Providers Payer Name Payer Address Payer Phone Subscriber Number Group Number Insured Name Patient Relationship to Insured Coverage Start Date Coverage End Date MEDICARE OF [place] [address] [place] [id number] [phone] [id number] DENISE HERNANDEZ Self - patient is the insured [facility] [address] [place] [address] [phone] [id number] DENISE HERNANDEZ Self - patient is the insured Medical (General) History Medical History History ICD Code Denies NH,DM,CVA,Lung disease,renal dise ase Rectal cancer in his 30's wi th chemotherapy, radiation treatments, and subsequent surgery at [facility]. He reports that he did not require a temporary colostomy nor ileostomy He describes frequent colono scopies after his surgery at [facility]. He does not think he had any polyps and his last colonoscopy was sometime in 2019 or before that Surgical History Surgery Date(Month/Year) Rectal cancer in his 30's as described a zainab [place]
--- OUTSIDE RECORDS SUMMARY | 2024-07-25 16:54 | XMS_ITS | Clinical Summary ---
Author Organization [facility] it Address [address] [place] [address] Care Team Providers Care Occupational Health Nurse Manager Name Role Phone Reji Wall DO Primary Care Provider [phone] Medical History Medical History Date Comments Personal history of malignan t neoplasm of large intestine 04/25/2005 DX:Personal history of mal ignant neoplasm of large intestine; COMMENT: adenoca of the rectum preop chemo and radiation Malignant neoplasm of rectum (CMS/HCC) 02/09/2006 DX:Malignant neoplasm of rec heather (HCC); COMMENT: Negative colonoscopy 05.01.06; next colonoscopy indicated . Cluster headache 07/01/2008 DX:Cluster head ache Family History Medical History Relation Name Comments CABG Father X 4 vessels Diabetes Father Hyperlipidemia Father Hyperlipidemia Mother Thyroid disease Mother Relation Name Status Comments Father Mother Social History Tobacco Use Types Packs/Day Years Used Date Smoking Tobacco: Every Day Smokeless Tobacco: Never Alcohol Use Standard Drinks/Week Comments Not Asked 0 (1 standard drink = 0.6 oz pur e alcohol) Sex and Gender Information Value Date Recorded Sex Assigned at Not on file Legal Sex Male 9:40 AM EST Gender Identity Not on file Sexual Orientation Not on file Obstetrics History Plan of Treatment Health Maintenance Due Date Last Done Comments COVID-19 Vaccine (#1) 1961 DTaP,Tdap,and Td Vaccines (1 - Tdap) 09/24/1975 Pneumococcal Vaccine: 50+ Years (1 of 2 - PCV) 09/24/1975 Zoster Vaccines (1 of 2) 09/24/1975 Abdominal Aortic Aneurysm (AAA) Screen 04/19/2022 Cholesterol Screening (Lipid Panel) 04/19/2022 Colorectal Cancer Screening: Colonoscopy 04/19/2022 Depression Screening 04/19/2022 Falls Risk Assessment 04/19/2022 Hepatitis C Screening 04/19/2022 Social Influencers of Health Screening 04/19/2022 Influenza Vaccine (#1) 2024 9, 04/14/2008, 04/17/2007, Additional history exists RSV Immunization Patients 60+ Years Old (1 - 1-dose 75+ series) 09/24/2031 HIB Vaccines Aged Out No longer eligi ble based on patient's age to complete this topic HPV Vaccines Aged Out No longer eligi ble based on patient's age to complete this topic Hepatitis A Vaccines Aged Out No long er eligible based on patient's age to complete this topic Hepatitis B Vaccines Aged Out No long er eligible based on patient's age to complete this topic IPV Vaccines Aged Out No longer eligi ble based on patient's age to complete this topic MMR Vaccines Aged Out No longer eligi ble based on patient's age to complete this topic Meningococcal ACWY Vaccine Aged Out N o longer eligible based on patient's age to complete this topic Meningococcal B Vacine Aged Out No lo nger eligible based on patient's age to complete this topic RSV Immunization Patients Under 20 months Aged Out No longer eligible based on patient's age to complete this topic Varicella Vaccines Aged Out No longer eligible based on patient's age to complete this topic Care Teams Occupational Health Nurse Manager Relationship Specialty Start Date End Date Reji Wall DO [address] [place] [id number] PCP - General 08/07/12
--- OUTSIDE RECORDS SUMMARY | 2024-07-25 16:54 | XMS_ITS ---
Author Organization [facility] Address [address] [place] [address] Care Team Providers Care Weather Clerk Name Role Phone Miguel Howell MD Primary Care Provider Lisandro Corrales [phone] REASON FOR VISIT screening,hx rectal cancer Problems Problem Type SNOMED Code ICD Code Onset Dates Problem Status W/U Status Risk Notes Problem Diverticular disease of colon (938872998) Diverticulosis of large intestine without perforation or abscess without bleeding (K57.30) Active confirmed Encounters Encounter Location Date Provider Diagnosis [facility] [address], [place] [phone] 11/22/2023 Lisandro Giron Colon cancer scree devan [...] Information Progress Notes * DENISE GEE BDOB:1955 (68 yo M)Acc No.[id number]:11/22/2023 COLON WITH MAC Patient:?DENISE GEE Provider:?Lisandro Giron MD :1955???Age:68 Y???Sex:Male John Paul e:11/22/2023 Address:[place] [address], [facility] Pcp:Miguel Howell MD Subjective: * Chief Complaints: * ???1. Screening,hx rectal ca ncer. * Medical History:? Objective: * Vitals:? Assessment: * Assessment: 1.?Colon cancer screening - Z12.11 (Primary)???2.?Colon polyps - K63.5???3.?Personal history of other malignant neoplasm of rectum, rectosigmoid junction, and anus - Z85.048???4.?Diverticulosis of large intestine without perforation or abscess without bleeding - K57.30???5.?Other hemorrhoids - K64.8??? Plan: * Treatment: * Procedure Codes:?04293 LESIO N REMOVAL COLONOSCOPY, Modifiers: PT , 22691 COLONOSCOPY AND BIOPSY, Modifiers: 59 , PT, 0529F INTRVL 3+YRS PTS CLNSCP DOCD, 0528F RCMND FLW-UP 10 YRS DOCD, Modifiers: 1P * * The named appointment provid er may or may not be the originator of this progress note, and it is not deemed complete until electronically signed by the appointment provider. Sign off status: Pending * Provider:?Lisandro Giron MD Date:? 024 Generated for Cherrie rodriguez/Anushka/eTransmitting on:?07/25/2024 04:54 PM EST
--- OUTSIDE RECORDS SUMMARY | 2024-07-25 16:54 | XMS_ITS ---
Author Organization [facility] Address [address] [place] [address] Care Team Providers Care Side Puller Name Role Phone Miguel Howell MD Primary Care Provider Reyna Giron Lisandro Rene [phone] REASON FOR VISIT screening, hx rectal ca Problems Problem Type SNOMED Code ICD Code Onset Dates Problem Status W/U Status Risk Notes Problem History of lower gastrointestinal tract neoplasm (246577657) Personal history of other malignant neoplasm of rectum, rectosigmoid junction, and anus (Z85.048) Active confirmed Problem History of gastrointestinal tract bypass (190261489) Intestinal bypass and anastomosis status (Z98.0) Active confirmed Encounters Encounter Location Date Provider Diagnosis [facility] Out[facility] [address] [place] [phone] 08/16/2023 Lisandro Giron Encounter for scre ening colonoscopy Z12.11 ; Colon polyps K63.5 ; Personal history of other malignant neoplasm of rectum, rectosigmoid junction, and anus Z85.048 and Intestinal bypass and anastomosis status Z98.0 Assessments Encounter Date Diagnosis (ICD Code) Assessment Notes Treatment Notes Treatment Clinical Notes Section Notes 08/16/2023 Encounter for screening colonoscopy (ICD-10 - Z12.11) 08/16/2023 Colon polyps (ICD-10 - K63.5) 08/16/2023 Personal history of other malignant neoplasm of rectum, rectosigmoid junction, and anus (ICD-10 - Z85.048) 08/16/2023 Intestinal bypass and anastomosis status (ICD-10 - Z98.0) Plan Of Treatment No Information Progress Notes * DENISE GEE BDOB:1955 (68 yo M)Acc No.[id number]:08/16/2023 COLON WITH MAC Patient:?DENISE GEE Provider:?Lisandro Giron MD :1955???Age:67 Y???Sex:Male John Paul e:08/16/2023 Address:[address], [facility] Pcp:Miguel Howell MD Subjective: * Chief Complaints: * ???1. Screening, hx rectal c a. * Medical History:? Objective: * Vitals:? Assessment: * Assessment: 1.?Encounter for screening c olonoscopy - Z12.11 (Primary)???2.?Colon polyps - K63.5???3.?Personal history of other malignant neoplasm of rectum, rectosigmoid junction, and anus - Z85.048???4.?Intestinal bypass and anastomosis status - Z98.0??? Plan: * Treatment: * Procedure Codes:?G0105 COLOR EC CANCR SCR; COLNSCPY HI RISK, Modifiers: 53 , 0529F INTRVL 3+YRS PTS CLNSCP DOCD, 0528F RCMND FLW-UP 10 YRS DOCD, Modifiers: 8P * * The named appointment provid er may or may not be the originator of this progress note, and it is not deemed complete until electronically signed by the appointment provider. Sign off status: Pending * Provider:?Lisandro Giron MD Date:? 024 Generated for Cherrie rodriguez/Anushka/eTransmitting on:?07/25/2024 04:54 PM EST
--- OUTSIDE RECORDS SUMMARY | 2024-07-25 16:54 | XMS_ITS ---
Author Organization [facility] Address [address] [place] [address] Care Team Providers Care Grants Analyst Name Role Phone Miguel Howell MD Primary Care Provider Lisandro Corrales [phone] REASON FOR VISIT Needs a repeat colonoscopy Encounters Encounter Location Date Provider Diagnosis [facility] [address] [place] [address] 08/20/2023 Lisandro Giron Plan Of Treatment No Information Progress Notes * DENISE GEEDOB:[birth year] (67 yo M)Acc No.[id number]:08/20/2023 Patient:?GERARD DENISE :1955???Age:67 Y???Sex:Male Address:[address] [facility] , [address] , [place], [address] * true * Date:? Generated for Fabii jennifer/Anushka/eTransmitting on:?07/25/2024 04:54 PM EST
== END 2024-07-25 14:13 | disposition home or self-care (01) ==
PROVIDERS: PCP Internal Medicine; Visit Provider Internal Medicine
DX: M53.3 Sacrococcygeal disorders, not elsewhere classified (principal)

== ENCOUNTER → 2024-07-25 13:51 | Outpatient (BNVA) | payer MEDICARE, SELFPAY | PROVIDERS: PCP Internal Medicine; Visit Provider Internal Medicine | DX: M53.3 Sacrococcygeal disorders, not elsewhere classified (principal) | CPT/HCPCS: 99212 ==

== ENCOUNTER 2024-12-17 10:54 | Outpatient (AMB) | payer MEDICARE, SELFPAY ==
--- NOTE | 2024-12-17 11:05 | A.OFFVIS_ITS ---
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 Dentist: reports that he have teeth Eye: up to date Snellen: Right: Left: Corrected vision: glasses STI screening: Colonoscopy: 11/2023-reports that the has to repeat in 5 years Pap Smer:n/a PHQ-9: Flu:never had COVID: never hand Tdap:2003 compeleted Diet: Exercise: The patient is a 69-year-old male presenting for a Medicare wellness visit. The patient has a history of colon cancer, treated with surgery, and has been compliant with regular colonoscopies, the last being in November of the previous year. He reports persistent numbness in his hands, more pronounced in the right hand, without associated pain or weakness. The patient has a long history of smoking, now reduced to four cigarettes daily, and denies alcohol use. He reports memory issues, with a family history of dementia, but has not pursued recent evaluations. colon cancer in the past about 12 to 15 cigarettes a year- been smoking since he his 19 year no alcohol little sob if he is working heart numbness in fingers, but worse in the right hand memory deficity: Dr. Ace-he things neuropsyhologist reports that he had not been in a while uses miralax all the time to prevent from becoming constipated right deltoid tdp HPI Comments History of Present Illness Details Reviewed past medical history-yes reviewed surgical/hospitalization history-yes reviewed current medications-yes Home Safety throw rugs? yes grab bars? no raised toilet seat? no working smoke detectors? yes Activities of daily living difficult bathing or showering? no difficulty dressing? no difficulty using the toilet? no difficult to get in and out of bed? no difficulty walking? no Received help from other person's with any of the above task? no Instrumental activities of daily living Uses telephone- yes Gets to place out of walking distance- yes go shopping for groceries- yes prepares own meals- yes does own laundry- yes does own housework- yes manages own money- yes currently takes medication- no End of life planning discussed advanced directives-yes advanced directives on file? no-forms given to the patient to fill out with his daughter discussed wishes expressed in advanced directives. yes Fall risk have you had any falls with injuries in the past year? have you had 2 or more falls in the past year? fall risk assessment: [facility] Medical History Hypertension Asthma Rectal cancer Hyperlipidemia Surgical History H/O colonoscopy Hx of appendectomy Status post colon resection Family History Father Alzheimers disease Diabetes CVD (cardiovascular disease) Mental health disorder Mother Alzheimers disease Diabetes Mental health disorder Social History Housing: House Alcohol intake: never Patient Tobacco Use Status: Current everyday Tobacco user Tobacco use type: Cigarette Cigarettes Per Day: 20 e-Cigarette/Vaping Use: Never Used Second Hand Smoke Exposure: No service: No Current occupational status: employed Cognitive needs: No Hearing needs: No Vision needs: Yes (glasses) Questionnaire Medicare Wellness Checkup What [age] What gender do you identify with?: male During the past 4 weeks, how much have you been bothered by emotional problems such as feeling anxious, depressed, irritable, sad or downhearted, and blue?: not at all During the past 4 weeks, has your physical & emotional health limited your social activities with family, friends, neighbors, or groups?: not at all During the past 4 weeks, how much bodily pain have you generally had?: very mild pain During the past 4 weeks, was someone available to help you if you needed & wanted help?: no, not at all During the past 4 weeks, what was the hardest physical activity you could do for at least 2 minutes?: heavy Can you get to places out of walking distance without help? (For eg., can you travel alone on buses, taxis or drive your car?): Yes Can you go shopping for groceries or clothes without someone's help?: Yes Can you prepare your own meals?: Yes Can you do your housework without help?: Yes Because of any health problems, do you need the help of another person with your personal care needs such as eating, bathing, dressing or getting around the house?: No Can you handle your own money without help?: Yes During the past 4 weeks, how would you rate your health in general?: good During the past 4 weeks how have things been going for you?: pretty well Are you having difficulties driving your car?: no Do you always fasten your seat belt when you are in a car?: yes, usually During past 4 weeks, have you been bothered by the following: never: Sexual problems?, Trouble eating well?, Problems using the telephone? and Tiredness or fatigue?, sometimes: Falling or dizzy when standing up and always: Teeth or denture problems? Have you fallen 2 or more times in the past year?: No Are you afraid of falling?: No Are you a smoker?: yes, but I'm not ready to quit During the past 4 weeks, how many drinks of wine, beer, or other alcoholic beverages did you have?: no alcohol at all Do you exercise for about 20 minutes 3 or more times a week?: no, I usually do not exercise this much Have you been given information to help with the following?: no: Hazards in your house that might hurt you? and no: Keeping track of your medications? How often do you have trouble taking medicines the way you have been told to take them?: I do not have to take medicine How confident are you that you can control & manage most of your health problems?: very confident What is your race?: White Mini Mental State Exam (MMSE) Orientation What is the (year) (season) (date) (day) (month)?: year, season, date, day and month Where are we (state) (county) (town or city) (hospital) (floor)?: state, county, town or city, hospital/clinic and floor Score Score: 10 Activity of Daily Living Bathing - sponge bath, tub bath or shower: receives no assistance (gets in/out by self, if usual bathing means Dressing - getting clothes from closets & drawers, including inner/outer garments & fasteners.: gets clothes & gets completely dressed without help Toileting - going to the 'toilet room' for urine/bowel elimination & cleaning self/arranging clothes: goes to toilet room, cleans self, arranges clothes without help Transfer: moves in & out of bed and chair without help (may use support object) Continence: controls urination/bowel movements completely by self Feeding: feeds self without help Total Score: 0 Information obtained from: patient Using telephone: independent Traveling: independent Shopping: independent Preparing meals: independent Housework: independent Taking medicine: independent Managing money: independent PHQ-9 Over the last 2 weeks, how often have you been bothered by any of the following problems? 1. Little interest or pleasure in doing things: not at all 2. Feeling down, depressed, or hopeless: not at all 3. Trouble falling or staying asleep, or sleeping too much: not at all 4. Feeling tired or having little energy: not at all 5. Poor appetite or overeating: not at all 6. Feeling bad about yourself - or that you are a failure or have let yourself or your family down: not at all 7. Trouble concentrating on things, such as reading the newspaper or watching television: not at all 8. Moving or speaking so slowly that other people could have noticed. Or the opposite - being so fidgety or restless that you have been moving around a lot more than usual: not at all 9. Thoughts that you would be better off or of hurting yourself in some way: not at all Total score: 0 Depression Screening Interpretation: Negative Depression Screening Done: Yes 50933 - PHQ-9 Billing: Yes Source: Developed by Drs. Lisandro Herring, Kacie Bansal, Tyrell Daniel and colleagues, with an educational pipe from [email or web address]. Review of Systems Const Denies headache(s) Eyes Denies loss of vision ENT Denies vertigo, Denies dizziness, Denies headache(s) and Denies sore throat Card Denies chest pain, Denies leg edema and Denies lightheadedness Resp Denies cough, Denies hemoptysis and Denies wheezing GI Denies abdominal pain, Denies melena, Denies constipation, Denies diarrhea and Denies vomiting Denies dysuria, Denies urinary frequency and Denies urinary urgency Musc Denies arthralgias, Denies joint swelling, Reports numbness (Both hands worse than right) and Denies tingling Skin/Breast Denies lesions and Denies rash Neuro Denies behavioral changes, Denies vertigo, Denies dizziness, Denies headache(s), Denies loss of vision, Reports memory loss, Reports numbness (Both hands worse than right) and Denies tingling Psych Denies anxiety, Denies behavioral changes, Denies depression, Reports memory loss and Denies panic attacks Thor/Lymph Denies easy bleeding and Denies easy bruising Aller/Immun Denies wheezing Physical Exam Vital Signs: Last Vital Signs Temp 97.1 F 12/17/24 11:08 Pulse 72 12/17/24 11:08 Resp 18 12/17/24 11:08 BP 146/72 H 12/17/24 11:08 Pulse Ox 98 12/17/24 11:08 Oxygen Delivery Method Room Air 12/17/24 11:08 BMI result Body Mass Index 20.7 Const Other: IPPE/AWV: Balance Romberg Yes . Tandem walk Yes. Walk and Turn Yes . Rise from sit to stand Yes . Vision Corrective lens No Vision screen pass Hearing Whisper test pass . Urinary incont. no. EKG Not clinically necessary. 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 0.5 mL IM Right Deltoid 0.5 mL [id number] 09/18/26 [id number] JO [employer] Total Dispensed Waste 0.5 mL 0 % VIS Given Date VIS Provided VIS Publication Date 12/17/24 Single Vaccine 20 Eligibility Eligibility Date Funding Source Not VFC Eligible 12/17/24 Private Assessment & Plan Assessment & Plan (1) Medicare annual wellness visit, initial: Code(s): Z00.00 - Encounter for general adult medical examination without abnormal findings (2) Hyperlipidemia: Code(s): E78.5 - Hyperlipidemia, unspecified Qualifiers: Hyperlipidemia type: unspecified Qualified Code(s): E78.5 - Hyperlipidemia, unspecified (3) Colon polyps: Code(s): K63.5 - Polyp of colon Qualifiers: Colon location: unspecified part of colon Colon polyp type: unspecified Qualified Code(s): K63.5 - Polyp of colon (4) Migraine headache: Code(s): G43.909 - Migraine, unspecified, not intractable, without status migrainosus Qualifiers: Intractability: not intractable Migraine type: unspecified Status migrainosus presence: without status migrainosus Qualified Code(s): G43.909 - Migraine, unspecified, not intractable, without status migrainosus (5) Memory change: Code(s): R41.3 - Other amnesia (6) Numbness and tingling in both hands: Code(s): R20.0 - Anesthesia of skin; R20.2 - Paresthesia of skin (7) Asthma: Code(s): J45.909 - Unspecified asthma, uncomplicated Qualifiers: Asthma complication type: unspecified Asthma persistence: unspecified Asthma severity: unspecified severity Qualified Code(s): J45.909 - Unspecified asthma, uncomplicated Orders: Orders Td Immunization 12/17/24 Z23 - Encounter for immunization Complete Blood Count Auto Diff 12/17/24 E78.5 - Hyperlipidemia, unspecified, G43.909 - Migraine, unspecified, not intractable, without status migrainosus, J45.909 - Unspecified asthma, uncomplicated, K52.9 - Noninfective gastroenteritis and colitis, unspecified, R20.0 - Anesthesia of skin, R20.2 - Paresthesia of skin, R41.3 - Other amnesia Magnesium 12/17/24 E78.5 - Hyperlipidemia, unspecified, G43.909 - Migraine, uns pecified, not intractable, without status migrainosus, J45.909 - Unspecified asthma, uncomplicated, K52.9 - Noninfective gastroenteritis and colitis, unspecified, R20.0 - Anesthesia of skin, R20.2 - Paresthesia of skin, R41.3 - Other amnesia Vitamin B12 and Folate 12/17/24 E78.5 - Hyperlipidemia, unspecified, G43.909 - Migraine, unspecified, not intractable, without status migrainosus, J45.909 - Unspecified asthma, uncomplicated, K52.9 - Noninfective gastroenteritis and colitis, unspecified, R20.0 - Anesthesia of skin, R20.2 - Paresthesia of skin, R41.3 - Other amnesia Vitamin D 25-OH Total 12/17/24 E78.5 - Hyperlipidemia, unspecified, G43.909 - Migraine, unspecified, not intractable, without status migrainosus, J45.909 - Unspecified asthma, uncomplicated, K52.9 - Noninfective gastroenteritis and colitis, unspecified, R20.0 - Anesthesia of skin, R20.2 - Paresthesia of skin, R41.3 - Other amnesia Hemoglobin A1c 12/17/24 E78.5 - Hyperlipidemia, unspecified, G43.909 - Migraine, unspecified, not intractable, without status migrainosus, J45.909 - Unspecified asthma, uncomplicated, K52.9 - Noninfective gastroenteritis and colitis, unspecified, R20.0 - Anesthesia of skin, R20.2 - Paresthesia of skin, R41.3 - Other amnesia TSH reflex Free T4 12/17/24 E78.5 - Hyperlipidemia, unspecified, G43.909 - Migraine, unspecified, not intractable, without status migrainosus, J45.909 - Unspecified asthma, uncomplicated, K52.9 - Noninfective gastroenteritis and colitis, unspecified, R20.0 - Anesthesia of skin, R20.2 - Paresthesia of skin, R41.3 - Other amnesia UA CC w/rflx Micro + Cult 12/17/24 E78.5 - Hyperlipidemia, unspecified, G43.909 - Migraine, unspecified, not intractable, without status migrainosus, J45.909 - Unspecified asthma, uncomplicated, K52.9 - Noninfective gastroenteritis and colitis, unspecified, R20.0 - Anesthesia of skin, R20.2 - Paresthesia of skin, R41.3 - Other amnesia Lipid Panel 12/17/24 E78.5 - Hyperlipidemia, unspecified, G43.909 - Migraine, unspecified, not intractable, without status migrainosus, J45.909 - Unspecified asthma, uncomplicated, K52.9 - Noninfective gastroenteritis and colitis, unspecified, R20.0 - Anesthesia of skin, R20.2 - Paresthesia of skin, R41.3 - Other amnesia B Type Natriuretic Peptide 12/17/24 E78.5 - Hyperlipidemia, unspecified, G43.909 - Migraine, unspecified, not intractable, without status migrainosus, J45.909 - Unspecified asthma, uncomplicated, K52.9 - Noninfective gastroenteritis and colitis, unspecified, R20.0 - Anesthesia of skin, R20.2 - Paresthesia of skin, R41.3 - Other amnesia Comprehensive [place]. Panel Fast 12/17/24 E78.5 - Hyperlipidemia, unspecified, G43.909 - Migraine, unspecified, not intractable, without status migrainosus, J45.909 - Unspecified asthma, uncomplicated, K52.9 - Noninfective gastroenteritis and colitis, unspecified, R20.0 - Anesthesia of skin, R20.2 - Paresthesia of skin, R41.3 - Other amnesia PSA,Total (Free>4and<10) 12/17/24 E78.5 - Hyperlipidemia, unspecified, G43.909 - Migraine, unspecified, not intractable, without status migrainosus, J45.909 - Unspecified asthma, uncomplicated, K52.9 - Noninfective gastroenteritis and colitis, unspecified, R20.0 - Anesthesia of skin, R20.2 - Paresthesia of skin, R41.3 - Other amnesia Medications: New albuterol sulfate 90 mcg/actuation (Ventolin HFA) 2 puffs inhalation Q4-6H PRN 8.5 grams 3RF shortness of breath or wheezing Quality Reporting (2019) Depression/Bipolar (159/160/161/177) PHQ-9: Total score: 0 Coding Diagnoses Medicare annual wellness visit, initial Z00.00 Hyperlipidemia, unspecified hyperlipidemia type E78.5 Hyperlipidemia type: unspecified Polyp of colon, unspecified part of colon, unspecified type K63.5 Colon location: unspecified part of colon Colon polyp type: unspecified Migraine without status migrainosus, not intractable, unspecified migraine type G43.909 Intractability: not intractable Migraine type: unspecified Status migrainosus presence: without status migrainosus Memory change R41.3 Numbness and tingling in both hands R20.0; R20.2 Asthma, unspecified asthma severity, unspecified whether complicated, unspecified whether persistent J45.909 Asthma complication type: unspecified Asthma persistence: unspecified Asthma severity: unspecified severity Additional Codes PHQ-9 - 37250 - PHQ-9 Billing: Yes ([id number])
[2024-12-17 11:08] VITALS: BP 146/72; PULSE 72; RESP 18; TEMP 36.2; O2SAT 98; BMI 20.7
--- OUTSIDE RECORDS SUMMARY | 2024-12-17 12:06 | XMS_ITS | Clinical Summary ---
Author Organization [facility] it Address [address] [place] [address] Care Team Providers Care Digester Cook Name Role Phone Reji Wall DO Primary Care Provider [phone] Medical History Medical History Date Comments Personal history of malignan t neoplasm of large intestine 04/25/2005 DX:Personal history of mal ignant neoplasm of large intestine; COMMENT: adenoca of the rectum preop chemo and radiation Malignant neoplasm of rectum (CMS/HCC V24, CMS/HCC V28) 02/09/2006 DX:Malignant neoplasm of rec heather (HCC); COMMENT: Negative colonoscopy 05.01.06; next colonoscopy indicated [id number]. Cluster headache 07/01/2008 DX:Cluster head ache Family [...] Health Maintenance Due Date Last Done Comments DTaP,Tdap,and Td Vaccines (1 - Tdap) 09/24/1975 Pneumococcal Vaccine: 50+ Years (1 of 2 - PCV) 09/24/1975 Zoster Vaccines (1 of 2) 2006 Abdominal Aortic Aneurysm (AAA) Screen 04/19/2022 Cholesterol Screening (Lipid Panel) 04/19/2022 Colorectal Cancer Screening: Colonoscopy 04/19/2022 Falls Risk Assessment 04/19/2022 Hepatitis C Screening 04/19/2022 Social Influencers of Health Screening 04/19/2022 COVID-19 Vaccine (2023- season) 2024 Depression Screening 05/22/2024 Influenza Vaccine (#1) 2025 9, 04/14/2008, 04/17/2007, Additional history exists RSV Immunization Adult Patients (1 - 1-dose 75+ series) 09/24/2031 HIB [...] age to complete this topic Meningococcal B Vaccine Aged Out No l onger eligible based on patient's age to complete this topic RSV Immunization Patients Under 20 months Aged Out No longer eligible based on patient's age to complete this topic Varicella Vaccines Aged Out No longer eligible based on patient's age to complete this topic Care Teams Digester Cook Relationship Specialty Start Date End Date Reji Wall DO [address] [place] [address] [place] [id number] PCP - General 08/07/12
--- OUTSIDE RECORDS SUMMARY | 2024-12-17 12:06 | XMS_ITS | Patient Health Record ---
Author Organization [facility] Address [address] [place] [address] Care Team Providers Care Client Manager Name Role Phone Miguel Howell MD Primary Care Provider Lisandro Corrales Unavailable [phone] Allergies No Known Allergies Reason For Referral No Information Medications Medication [...] Problem Status W/U Status Risk Notes Problem [id number] Colon cancer screening (Z12.11) Active confirmed Problem Diverticulosis o f large intestine without perforation or abscess without bleeding (K57.30) Active confirmed Problem History of lower gastrointestinal tract neoplasm (833455374) Personal history of other malignant neoplasm of rectum, rectosigmoid junction, and anus (Z85.048) Active confirmed Problem History of gastrointestinal tract bypass (395351680) Intestinal bypass and anastomosis status (Z98.0) Active confirmed Problem [id number] Preprocedural examination (Z01.818) Active confirmed Problem 116497960 History of recta l cancer (Z85.048) Active confirmed Plan Of Treatment Pending Test Test Name Order Date Pathology 11/22/2023 Future Test Test Name Order Date COLONOSCOPY 05/30/2023 Insurance Providers Payer Name Payer Address Payer Phone Subscriber Number Group Number Insured Name Patient Relationship to Insured Coverage Start Date Coverage End Date MEDICARE OF [place] [address] [place] [address] [id number] DENISE HERNANDEZ Self - patient is the insured [facility] [address] [place] [address] [phone] [id number] DENISE HERNANDEZ Self - patient is the insured Medical (General) History Medical History History ICD Code Denies [place],DM,CVA,Lung disease,renal dise ase Rectal cancer in his 30's wi th chemotherapy, radiation treatments, and subsequent surgery at [facility]. He reports that he did not require a temporary colostomy nor ileostomy He describes frequent colono scopies after his surgery at [facility]. He does not think he had any polyps and his last colonoscopy was sometime in 2019 or before that Surgical History Surgery Date(Month/Year) Rectal cancer in his 30's as described a [facility] [place]
== END 2024-12-17 12:36 | disposition home or self-care (01) ==
LOC: HO.HMCH 10:54
PROVIDERS: PCP Internal Medicine
DX: Z23 Encounter for immunization (principal)

== ENCOUNTER → 2024-12-17 10:54 | Outpatient (BNVA) | payer MEDICARE, SELFPAY | PROVIDERS: PCP Internal Medicine | DX: Z00.00 Encounter for general adult medical examination without abnormal findings (principal); Z23 Encounter for immunization; E78.5 Hyperlipidemia, unspecified; K63.5 Polyp of colon; R41.3 Other amnesia; R20.0 Anesthesia of skin; R20.2 Paresthesia of skin; J45.909 Unspecified asthma, uncomplicated | CPT/HCPCS: 90471; 90714; 96127 ==

== ENCOUNTER 2025-03-20 09:08 | Outpatient (AMB) | payer MEDICARE, SELFPAY ==
--- OUTSIDE RECORDS SUMMARY | 2023-11-22 05:30 | XMS_ITS ---
Author Organization [facility] Address [address] [place] [address] Care Team Providers Care Soloist Dancer Name Role Phone Miguel Howell MD Primary Care Provider Lisandro Corrales [phone] REASON FOR VISIT screening,hx rectal cancer Problems Problem Type SNOMED Code ICD Code Onset Dates Problem Status W/U Status Risk Notes Problem Diverticular disease of colon (919580089) Diverticulosis of large intestine without perforation or abscess without bleeding (K57.30) Active confirmed Encounters Encounter Location Date Provider Diagnosis [facility] [place] [address], [place] [phone] 11/22/2023 Lisandro Giron Colon cancer scree devan [...] * DENISE GEE BDOB:1955 (69 yo M)Acc No.[id number]:11/22/2023 COLON WITH MAC Patient: DENISE MCCLURE Provider: Charly Giron MD :1955 A ge:68 Y S ex:Male Date:11/22/2023 Address:[place] [address], , [facility] Pcp:Miguel Howell MD Subjective: * Chief Complaints: [...] 5385 LESION REMOVAL COLONOSCOPY, Modifiers: PT , [address] COLONOSCOPY AND BIOPSY, Modifiers: 59 , PT, [...] 0 11/22/2023 Generated for Cherrie rodriguez/Anushka/Marielysmitting on: 10:18 AM EDT
[2025-03-20 09:23] VITALS: BP 136/64; PULSE 67; RESP 18; TEMP 36.3; O2SAT 99; BMI 21.7
--- NOTE | 2025-03-20 09:23 | MHC.PC.OV ---
Vital Signs 03/20/25 09:23 Height 5 ft 7 in Weight 138 lb 4 oz BMI 21.7 BP 136/64 Blood Pressure Location Lt brachial Position Sitting Respiration 18 Pulse 67 Pulse Source Pulse Oximeter Temp 97.3 F Temp Source Temporal Artery Scan Pulse Oximetry (%) 99 Oxygen Delivery Method Room Air Intake Visit Reasons: hand numbess, ashtma/migraine Glue Specialty Supervisor Required: No Accompanied by: Self / Same As Patient Allergies No Known Allergies Allergy (Verified 03/23/25 21:21) Medication List - Last Reconciled 03/23/25 by CURT Nicolas albuterol sulfate 90 mcg/actuation (Ventolin HFA) 2 puffs inhalation Q4-6H PRN polyethylene glycol 3350 (Purelax) 17 grams PO DAILY Tobacco use date assessed: 03/20/25 Fall risk assessment: 1 Fall in past year Last assessed Fall Risk: 03/20/25 Dental Screening Dental Screen Date: 03/20/25 Did you have a dental visit in the last 12 months?: No Did you have a dental problem in the last 6 months where you did not have access to dental care?: No Was dental information given to patient?: No HPI hand numbess, ashtma/migraine HPI Details The patient is a 69-year-old male presenting with numbness and pins and needles in his hands and memory concerns. He reports a two-month history of numbness and a ptln-lim-oapcvkg sensation, which is heavier in the left hand and transmitter operator in the right. He denies any antecedent injury or wrist pain and notes his left hand feels colder than his right. The patient also reports significant memory problems, describing his short-term memory as poor, while his long-term memory remains intact. He has had episodes of getting lost while driving on familiar routes. He notes a family history of dementia, with both parents having been affected. Additionally, the patient experiences brief episodes of dizziness upon standing after sitting for long periods, which resolve quickly. He has a history of migraines, but has not experienced one recently. He denies headaches or changes in vision, and his bowel habits are unchanged. The patient leads a sedentary lifestyle, watching television for many hours a day. His fluid intake consists almost exclusively of soda, and he does not drink water, coffee, or tea. He denies any alcohol or caffeine use. memory issues, reports that he is getting lost in local areas Reports transient dizziness, poor po intake, mostly only drinking sodas. reports one bottle once in a while Reports that both parents had dementia, one had alzheimers and a different type of alzheimers. [facility] Medical History Hypertension Asthma Rectal cancer Hyperlipidemia Surgical History H/O colonoscopy Hx of appendectomy Status post colon resection Family History Father Alzheimers disease Diabetes CVD (cardiovascular disease) Mental health disorder Mother Alzheimers disease Diabetes Mental health disorder Social History Housing: House Alcohol intake: never Patient Tobacco Use Status: Current everyday Tobacco user Tobacco use type: Cigarette Cigarettes Per Day: 20 e-Cigarette/Vaping Use: Never Used Second Hand Smoke Exposure: No service: No Current occupational status: employed Cognitive needs: No Hearing needs: No Vision needs: Yes (glasses) Questionnaire PHQ-9 Over the last 2 weeks, how often have you been bothered by any of the following problems? 1. Little interest or pleasure in doing things: not at all 2. Feeling down, depressed, or hopeless: not at all 3. Trouble falling or staying asleep, or sleeping too much: not at all 4. Feeling tired or having little energy: not at all 5. Poor appetite or overeating: not at all 6. Feeling bad about yourself - or that you are a failure or have let yourself or your family down: not at all 7. Trouble concentrating on things, such as reading the newspaper or watching television: not at all 8. Moving or speaking so slowly that other people could have noticed. Or the opposite - being so fidgety or restless that you have been moving around a lot more than usual: not at all 9. Thoughts that you would be better off or of hurting yourself in some way: not at all Total score: 0 Depression Screening Interpretation: Negative Depression Screening Done: Yes Source: Developed by Drs. Lisandro Herring, Kacie B.Tyrell Saleem and colleagues, with an educational pipe from [employer]. Thrive Questionnaire Date Thrive assessed: 05/30/24 I am a: Patient What is your living situation today?: I have a steady place to live Within the past 12 months, did the food you bought not last and you didn't have the money to get more?: Never true Within the past 12 months, did you worry whether your food would run out before you got money to buy more?: Never true Do you have trouble paying for medicines?: No Do you have trouble getting transportation to medical appointments?: No Do you have trouble paying your heating and electricity bill?: No Do you have trouble taking care of your child, family member or friend?: No Do you have trouble with day-to-day activities such as bathing, preparing meals, shopping, managing finances, etc.?: No Are you currently unemployed and looking for a job?: No Are you interested in more education?: No Please select the resources that you would like help with: None Currently or been in a relationship where the following occur: No concerns reported THRIVE Score: 0 AUDIT C Alcohol Use Questionnaire (AUDIT-C) 1. How often do you have a drink containing alcohol?: Never Total Score: 0 MARIANA-7 AMB Questionnaire MARIANA-7 Date MARIANA - 7 assessed: 05/30/24 Feeling nervous, anxious, or on edge: 0 = Not at all Not being able to stop or control worryin = Not at all Worrying too much about different things: 0 = Not at all Trouble relaxin = Not at all Being so restless that it is hard to sit still: 0 = Not at all Becoming easily annoyed or irritable: 0 = Not at all Feeling afraid as if something awful might happen: 0 = Not at all Total MARIANA-7 score (0-4 normal; 5-9 mild; 10-14 moderate; 15-21 severe): 0 Source: Developed by Drs. Lisandro Herring, Tyrell Modi and colleagues, with an educational pipe from [employer]. Review of Systems Const Denies headache(s) Eyes Denies loss of vision ENT Denies vertigo, Reports dizziness (When going from a sitting to a standing position), Denies headache(s) and Denies sore throat Card Denies chest pain, Denies leg edema and Denies lightheadedness Resp Denies cough, Denies hemoptysis and Denies wheezing GI Denies abdominal pain, Denies melena, Denies constipation, Denies diarrhea and Denies vomiting Denies dysuria, Denies urinary frequency and Denies urinary urgency Musc Denies arthralgias, Denies joint swelling, Reports numbness (Both hands worse than right) and Denies tingling Skin/Breast Denies lesions and Denies rash Neuro Denies Abnormal speech present, Denies behavioral changes, Denies vertigo, Reports dizziness (When going from a sitting to a standing position), Denies headache(s), Denies loss of vision, Reports memory loss, Reports numbness (Both hands worse than right) and Denies tingling Psych Denies anxiety, Denies behavioral changes, Denies depression, Reports memory loss and Denies panic attacks Thor/Lymph Denies easy bleeding and Denies easy bruising Aller/Immun Denies wheezing Physical exam (Primary Care) Vital Signs: Last Vital Signs Temp 97.3 F 03/20/25 09:23 Pulse 67 03/20/25 09:23 Resp 18 03/20/25 09:23 BP 136/64 03/20/25 09:23 Pulse Ox 99 03/20/25 09:23 Oxygen Delivery Method Room Air 03/20/25 09:23 BMI result Body Mass Index 21.7 Tobacco/Smoking Status: Tobacco use Status Tobacco use date assessed 03/20/25 03/20/25 09:30 Patient Tobacco Use Status Current everyday Tobacco 03/20/25 09:24 Tobacco use type Cigarette 03/20/25 09:24 e-Cigarette/Vaping Use Never Used 03/20/25 09:24 PHQ-9: PHQ-9 Score PHQ-9: Total score 0 03/20/25 10:10 Depression Screening Interpretation: Negative Thrive Assessment: Date of Thrive Assessment Date Thrive assessed 05/30/24 03/20/25 09:24 Currently or been in a relationship where the following occur: No concerns reported Const General: healthy appearing, no acute distress, alert and awake Nutritional Appearance: well nourished Orientation/consciousness: oriented to person, oriented to place and oriented to time HENMT Ears: TM's normal bilaterally General nose exam: Normal nasal mucous membranes and turbinates present Eyes Conjunctivae: conjunctivae normal Sclerae: sclerae normal Pupils: Equal, round and reactive pupils present Neck Neck: Yes no lymphadenopathy and Yes no JVD Thyroid: Thyroid normal Carotids: no bruits Resp Effort & Inspection: normal respiratory effort and not tachypneic Auscultation: no crackles, no rales, no rhonchi and no wheezes Cardio Rate: regular rate Rhythm: regular rhythm Heart sounds: no murmurs and normal S1 and S2 GI Palpation (GI): Soft to palpation, nontender, no hepatomegaly and no splenomegaly Auscultation: normal bowel sounds Skin General skin exam: no rashes or lesions noted and dry skin Neuro General: oriented to person, oriented to place, oriented to time and no focal motor deficits Cranial nerves: Yes CN's II-XII intact bilaterally and Yes Equal, round and reactive pupils present Speech: No Abnormal speech present Gait exam (Neuro): Normal gait present Motor exam (neuro): 5/5 motor strength present throughout and no tremor noted Extrem Right upper extremity: full ROM Left upper extremity: full ROM Right lower extremity: full ROM; no edema Left lower extremity: full ROM; no edema Psych Mental Status: mental status grossly normal Speech and movement: Normal speech and movement present Affect: normal affect Attitude: cooperative Thought process: Normal thought process present Coding Level of Care Code Est Pt Level 4 (94265) Diagnoses Hyperlipidemia, unspecified hyperlipidemia type E78.5 Hyperlipidemia type: unspecified Polyp of colon, unspecified part of colon, unspecified type K63.5 Colon polyp type: unspecified Colon location: unspecified part of colon Migraine without status migrainosus, not intractable, unspecified migraine type G43.909 Migraine type: unspecified Status migrainosus presence: without status migrainosus Intractability: not intractable Memory change R41.3 Numbness and tingling in both hands R20.0; R20.2 Asthma, unspecified asthma severity, unspecified whether complicated, unspecified whether persistent J45.909 Asthma severity: unspecified severity Asthma persistence: unspecified Asthma complication type: unspecified Dizziness R42 Time Spent (min) 37 Assessment & Plan Assessment & Plan (1) Hyperlipidemia: Code(s): E78.5 - Hyperlipidemia, unspecified Category: Medical Qualifiers: Hyperlipidemia type: unspecified Qualified Code(s): E78.5 - Hyperlipidemia, unspecified Plan: No recent blood work on file Discussed lifestyle modifications including dietary changes and physical activity Labs ordered to be completed as soon as possible (2) Colon polyps: Code(s): K63.5 - Polyp of colon Category: Medical Qualifiers: Colon polyp type: unspecified Colon location: unspecified part of colon Qualified Code(s): K63.5 - Polyp of colon Plan: Follow up with GI as scheduled for repeat colonoscopy (3) Migraine headache: Code(s): G43.909 - Migraine, unspecified, not intractable, without status migrainosus Category: Medical Qualifiers: Migraine type: unspecified Status migrainosus presence: without status migrainosus Intractability: not intractable Qualified Code(s): G43.909 - Migraine, unspecified, not intractable, without status migrainosus Plan: Denies headache. Increase fluid intake and avoid triggers (4) Memory change: Code(s): R41.3 - Other amnesia Category: Medical Plan: Reports that he has been evaluated by Dr. Ace-he thinks is a neuropsyhologist. He has not seen him for a while, and is not sure if he needs a referral or not. The patient we will call for an appointment and we will let the office know if he needs a referral. Labs were ordered to further evaluate this but the patient has not completed his blood work as yet. (5) Numbness and tingling in both hands: Code(s): R20.0 - Anesthesia of skin; R20.2 - Paresthesia of skin Category: Medical Plan: Labs ordered to evaluate if this is related to electrolytes imbalance, diabetes or B12 deficiency. The patient has not completed his blood work as yet. We will also add an EMG and NCT to rule out neuropathy. (6) Asthma: Code(s): J45.909 - Unspecified asthma, uncomplicated Category: Medical Qualifiers: Asthma severity: unspecified severity Asthma persistence: unspecified Asthma complication type: unspecified Qualified Code(s): J45.909 - Unspecified asthma, uncomplicated Plan: Lifestyle modifications like smoking cessation. Wear a mask when around irritants, fumes, or particulate matter (e.g., painting, lawn mowing). Increase humidification at home, especially in the winter. Annual flu shots and the pneumonia shot can mitigate exacerbation. Increase fluids if not contraindicated because of heart failure. Continue albuterol sulfate 90 mcg/actuation 2 puffs inhalation Q 4-6 H p.r.n. (7) Dizziness: Code(s): R42 - Dizziness and giddiness Category: Medical Plan: The patient reports brief episodes of dizziness on standing, which is likely secondary to dehydration from poor fluid intake. He was counseled on the importance of increasing water consumption and significantly reducing his intake of soda, as it does not provide adequate hydration. Orders: Orders NE electromyogram (EMG) 03/20/25 R20.0 - Anesthesia of skin, R20.2 - Paresthesia of skin NE nerve conduction velocity 03/20/25 R20.0 - Anesthesia of skin, R20.2 - Paresthesia of skin
--- OUTSIDE RECORDS SUMMARY | 2025-03-20 10:18 | XMS_ITS | Patient Health Record ---
Author Organization [facility] Address [address] [place] [address] Care Team Providers Care Porcelain Enamel Repairer Name Role Phone Miguel Howell MD Primary Care Provider Reyna perez GironLisandro Unavailable [phone] Allergies No Known Allergies Reason For Referral No Information Medications Medication SIG (Take, Route, Frequency, Duration) Notes Start Date End Date Status Zomig 5 MG 1 tablet Orally Once a day; Duration: 1 day(s) PRN Headache Active Cyclobenzaprine HCl 10 MG TAKE 1 TABLET ORALLY 3 TIMES A DAY Oral; Duration: 30 PRN Neuropathy pain Active Social History [...] Problem Status W/U Status Risk Notes Problem Colon cancer screening (622329420) Colon cancer screening (Z12.11) Active confirmed Problem Diverticular disease of colon (883973584) Diverticulosis of large intestine without perforation or abscess without bleeding (K57.30) Active confirmed Problem History of lower gastrointestinal tract neoplasm (888804770) Personal history of other malignant neoplasm of rectum, rectosigmoid junction, and anus (Z85.048) Active confirmed Problem History of gastrointestinal tract bypass (228085237) Intestinal bypass and anastomosis status (Z98.0) Active confirmed Problem Preprocedural examination (973778501925881) Preprocedural examination (Z01.818) Active confirmed Problem History of malignant neoplasm of rectum (329580513) History of rectal cancer (Z85.048) Active confirmed Plan Of Treatment Pending Test Test Name Order Date Pathology 11/22/2023 Future Test Test Name Order Date COLONOSCOPY 05/30/2023 Insurance Providers Payer Name Payer Address Payer Phone Subscriber Number Group Number Insured Name Patient Relationship to Insured Coverage Start Date Coverage End Date MEDICARE OF [place] [address] [place] [address] [id number] DENISE HERNANDEZ Self - patient is the insured [facility] [address] [place] [address] [id number] DENISE HERNANDEZ Self - patient is the insured Medical (General) History Medical History History ICD Code Denies VT,DM,CVA,Lung disease,renal dise ase Rectal cancer in his 30's wi th chemotherapy, radiation treatments, and subsequent surgery at [facility]. He reports that he did not require a temporary colostomy nor ileostomy He describes frequent colono scopies after his surgery at [facility]. He does not think he had any polyps and his last colonoscopy was sometime in 2019 or before that Surgical History Surgery Date(Month/Year) Rectal cancer in his 30's as described a zainab [place]
== END 2025-03-20 10:13 | disposition home or self-care (01) ==
LOC: HO.HMCH 09:09
DX: E78.5 Hyperlipidemia, unspecified (principal); K63.5 Polyp of colon; G43.909 Migraine, unspecified, not intractable, without status migrainosus; R41.3 Other amnesia; R20.0 Anesthesia of skin; R20.2 Paresthesia of skin; J45.909 Unspecified asthma, uncomplicated; R42 Dizziness and giddiness

== ENCOUNTER → 2025-03-20 09:08 | Outpatient (BNVA) | payer MEDICARE, SELFPAY | DX: E78.5 Hyperlipidemia, unspecified (principal); K63.5 Polyp of colon; G43.909 Migraine, unspecified, not intractable, without status migrainosus; R41.3 Other amnesia; R20.0 Anesthesia of skin; R20.2 Paresthesia of skin; J45.909 Unspecified asthma, uncomplicated; R42 Dizziness and giddiness | CPT/HCPCS: 99212 ==

== ENCOUNTER 2025-03-21 10:10 | Outpatient (REF) | payer MEDICARE, SELFPAY ==
--- OUTSIDE RECORDS SUMMARY | 2023-11-22 05:30 | XMS_ITS ---
Author Organization [facility] Address [address] [place] [address] Care Team Providers Care Managing Broker Name Role Phone Miguel Howell MD Primary Care Provider Lisandro Corrales [phone] REASON FOR VISIT screening,hx rectal cancer Problems Problem Type SNOMED Code ICD Code Onset Dates Problem Status W/U Status Risk Notes Problem Diverticular disease of colon (906421591) Diverticulosis of large intestine without perforation or abscess without bleeding (K57.30) Active confirmed Encounters Encounter Location Date Provider Diagnosis [facility] Outpatient [address], [place] [id number] 11/22/2023 Lisandro Giron Colon cancer scree devan Z12.11 ; Colon polyps K63.5 ; Personal history of other malignant neoplasm of rectum, rectosigmoid junction, and anus Z85.048 ; Diverticulosis of large intestine without perforation or abscess without bleeding K57.30 and Other hemorrhoids K64.8 Assessments Encounter Date Diagnosis (ICD Code) Assessment Notes Treatment Notes Treatment Clinical Notes Section Notes 11/22/2023 Colon cancer screening (ICD-10 - Z12.11) 11/22/2023 Colon polyps (ICD-10 - K63.5) 11/22/2023 Personal history of other malignant neoplasm of rectum, rectosigmoid junction, and anus (ICD-10 - Z85.048) 11/22/2023 Diverticulosis of large intestine without perforation or abscess without bleeding (ICD-10 - K57.30) 11/22/2023 Other hemorrhoids (ICD-10 - K64.8) Plan Of Treatment No Information Progress Notes * DENISE GEE BDOB:1955 (69 yo M)Acc No.[id number]:11/22/2023 COLON WITH MAC Patient: DENISE MCCLURE Provider: Charly Giron MD :1955 A ge:68 Y S ex:Male Date:11/22/2023 Address:[place] [address], [facility] Pcp:Miguel Howell MD Subjective: * Chief Complaints: * 1 . Screening,hx rectal cancer. * Medical History: Objective: * Vitals: Assessment: * Assessment: 1. C olon cancer screening - Z12.11 (Primary) 2 . C olon polyps - K63.5? 3. P ersonal history of other malignant neoplasm of rectum, rectosigmoid junction, and anus - Z85.048 4 . D iverticulosis of large intestine without perforation or abscess without bleeding - K57.30 5 . O ther hemorrhoids - K64.8 ? Plan: * Treatment: * Procedure Codes: 4 5385 LESION REMOVAL COLONOSCOPY, Modifiers: [place] , [address] COLONOSCOPY AND BIOPSY, Modifiers: 59 , PT, 0529F INTRVL 3+YRS PTS CLNSCP DOCD, 0528F RCMND FLW-UP 10 YRS DOCD, Modifiers: 1P * * The named appointment provid er may or may not be the originator of this progress note, and it is not deemed complete until electronically signed by the appointment provider. Sign off status: Pending * Provider: Charly Giron MD Date: 0 11/22/2023 Generated for Cherrie rodriguez/Anushka/Marielysmitting on: 11:30 AM EDT
[2025-03-21 10:28] LABS: MANUAL DIFF FLAG NO
[2025-03-21 10:45] LABS: Hematocrit 46.3 % (42.0-52.0); Hemoglobin 15.8 g/dl (14.0-18.0); Imm Gran Abs Auto 0.02 X10*3/uL (0.00-0.03); Imm Gran Pct Auto 0.3 % (0.0-0.4); Lymphocytes Absolute Auto 2.0 X10*3/uL (1.2-4.9); Mean Corpuscular HGB Conc 34.1 g/dl (31.0-36.0); Mean Corpuscular Hemoglobin 30.1 pg (27.0-33.0); Mean Corpuscular Volume 88.2 fL (80.0-98.0); NRBC Abs Auto 0.000 X10*3/uL (0.0-0.012); NRBC Pct Auto 0.0 /100WBC (0.0-0.2); Platelet Count 275 X10*3/uL (160-400); Red Blood Count 5.25 X10*6/uL (4.60-5.80); White Blood Count 7.2 X10*3/uL (4.8-10.8)
[2025-03-21 11:30] LABS: Alanine Aminotransferase 18 U/L (0-40); Albumin Level 4.5 g/dL (3.5-5.0); Alkaline Phosphatase 66 U/L (39-117); Anion Gap 11 (12-20); Aspartate Amino Transferase 21 U/L (5-37); Blood Urea Nitrogen 7 mg/dL (9-16); Calcium 9.5 mg/dL (8.4-10.2); Carbon Dioxide 26 mmol/L (22-29); Chloride 106 mmol/L (96-108); Cholesterol 194 mg/dL (<200); Estimated Glomerular Filt Rate > 60; HDL Cholesterol 38 mg/dL (>40); Magnesium 2.2 mg/dL (1.6-2.6); Potassium 3.9 mmol/L (3.3-5.1); Sodium 139 mmol/L (135-145); Total Protein 7.0 g/dL (6.5-8.0); Triglycerides 114 mg/dL (<150)
--- OUTSIDE RECORDS SUMMARY | 2025-03-21 11:31 | XMS_ITS | Patient Health Record ---
Author Organization [facility] Address [address] [place] [address] Care Team Providers Care Physical Sciences Professor Name Role Phone Miguel Howell MD Primary Care Provider Reyna perez GironLisandro Unavailable [phone] Allergies No Known Allergies Reason For Referral [...] Status Risk Notes Problem Colon cancer screening (885585515) Colon cancer screening (Z12.11) Active confirmed Problem Diverticular disease of colon (839400784) Diverticulosis of large intestine without perforation or abscess without bleeding (K57.30) Active confirmed Problem History of lower gastrointestinal tract neoplasm (064122219) Personal history of other malignant neoplasm of rectum, rectosigmoid junction, and anus (Z85.048) Active confirmed Problem History of gastrointestinal tract bypass (776835305) Intestinal bypass and anastomosis status (Z98.0) Active confirmed Problem Preprocedural examination (447228622917715) Preprocedural examination (Z01.818) Active confirmed Problem History of malignant neoplasm of rectum (734326243) History of rectal cancer (Z85.048) Active confirmed Plan Of Treatment Pending Test Test Name Order Date Pathology 11/22/2023 Future Test Test Name Order Date COLONOSCOPY 05/30/2023 Insurance Providers Payer Name Payer Address Payer Phone Subscriber Number Group Number Insured Name Patient Relationship to Insured Coverage Start Date Coverage End Date MEDICARE OF [place] [address] [place] [address] [id number] DENISE HERNANDEZ Self - patient is the insured [facility] [address] [place] [address] [id number] DENISE HERNANDEZ Self - patient is the insured Medical (General) History Medical History History ICD Code Denies GA,DM,CVA,Lung disease,renal dise ase Rectal cancer in his 30's wi th chemotherapy, radiation treatments, and subsequent surgery at [facility]. He reports that he did not require a temporary colostomy nor ileostomy He describes frequent colono scopies after his surgery at [facility]. He does not think he had any polyps and his last colonoscopy was sometime in 2019 or before that Surgical History Surgery Date(Month/Year) Rectal cancer in his 30's as described a zainab [place]
[2025-03-21 11:46] LABS: PSA,Total (Free>4and<10) 2.60 ng/mL (0.00-4.00)
[2025-03-21 11:55] LABS: Appearance Urine Clear; Glucose Urine UA Negative (Negative); PH 5.5 (5.0-9.0); Specific Gravity - Urine 1.025 (1.005-1.025)
[2025-03-21 12:01] LABS: Folate 3.8 ng/mL (> or = 4.0); Vitamin B12 191 pg/mL (200-900)
== END 2025-03-21 10:11 | disposition home or self-care (01) ==
LOC: HO.LAB 10:10
DX: Z12.5 Encounter for screening for malignant neoplasm of prostate (principal); Z13.1 Encounter for screening for diabetes mellitus; E78.5 Hyperlipidemia, unspecified; K52.9 Noninfective gastroenteritis and colitis, unspecified; G43.909 Migraine, unspecified, not intractable, without status migrainosus; J45.909 Unspecified asthma, uncomplicated; R20.0 Anesthesia of skin; R20.2 Paresthesia of skin; R41.3 Other amnesia
CPT/HCPCS: 36415; 80053; 80061; 81003; 82306; 82607; 82746; 83036; 83735; 84153; 84443; 85025

== ENCOUNTER 2025-04-15 08:55 | Outpatient (REF) | payer MEDICARE, SELFPAY ==
--- NOTE | 2025-04-15 09:01 | EMG_ITS ---
Chief complaint: Numbness and pain in both hands Referred by: Ezekiel Zuleta NP Procedure done: NCS and EMG of bilateral upper extremities Bilateral median and ulnar motor studies were performed, median and ulnar mixed sensory studies were performed and radial sensory studies were performed. EMG was performed. Findings: Median motor studies were normal. Right median mixed distal latencies was mildly prolonged. Ulnar motor studies revealed mild slowing across elbow. Impression: 1. Mild bilateral ulnar neuropathy across cubital tunnel 2. Mild right median neuropathy across carpal tunnel Codin [address] x2 MTDD
--- OUTSIDE RECORDS SUMMARY | 2025-04-15 09:28 | XMS_ITS | Clinical Summary ---
Author Organization [facility] Address [address] [place] [address] Care Team Providers Care Cmv Driver Name Role Phone Reji Wall DO Primary Care Provider [phone] Medical History Medical History Date Comments Personal history of malignan t neoplasm of large intestine 04/25/2005 DX:Personal history of mal ignant neoplasm of large intestine; COMMENT: adenoca of the rectum preop chemo and radiation Malignant neoplasm of rectum (CMS/HCC V24, CMS/HCC V28) 02/09/2006 DX:Malignant neoplasm of rec heather (HCC); COMMENT: Negative colonoscopy 05.01.06; next colonoscopy indicated [id number]. Cluster headache 07/01/2008 DX:Cluster head ache Family [...] Health Maintenance Due Date Last Done Comments Colorectal Cancer Screening: Colonoscopy 1955 DTaP,Tdap,and Td Vaccines (1 - Tdap) 09/24/1975 Pneumococcal Vaccine: 50+ Years (1 of 2 - PCV) 09/24/1975 Zoster Vaccines (1 of 2) 2006 Abdominal Aortic Aneurysm (AAA) Screen 04/19/2022 Cholesterol Screening (Lipid Panel) 04/19/2022 Falls Risk Assessment 04/19/2022 Hepatitis C Screening 04/19/2022 Social Influencers of Health Screening 04/19/2022 Depression Screening 05/22/2024 COVID-19 Vaccine (2024- season) 2025 Influenza Vaccine (#1) 2025 9, 04/14/2008, 04/17/2007, [...] age to complete this topic Care Teams Cmv Driver Relationship Specialty Start Date End Date Reji Wall DO [address] [place] [id number] PCP - General 08/07/12
== END 2025-04-15 08:56 | disposition home or self-care (01) ==
LOC: HO.NEURO 08:55
DX: R20.0 Anesthesia of skin (principal); R20.2 Paresthesia of skin
CPT/HCPCS: 95886; 95911

== ENCOUNTER → 2025-04-15 09:01 | Outpatient (BNV) | payer MEDICARE, SELFPAY | PROVIDERS: Visit Provider Psychiatry & Neurology Neurology | DX: G56.01 Carpal tunnel syndrome, right upper limb (principal) | CPT/HCPCS: 95886; 95911 ==